=== PATIENT | male | born 1995 | race Caucasian/White ===

== ENCOUNTER 2017-01-26 06:10 | Observation (INO) | payer OTHER ==
[~2017-01-26] VITALS: Ht 165.1 cm; Wt 86.8 kg
[2017-01-26] MEDS ORDERED: SODIUM CHLORIDE 0.9% 1000ML 1,000 ML IV STA ×2 (06:43→06:44)
[2017-01-26] MEDS ORDERED: DIPHTHERIA/TETANUS/PERTUSSIS 0.5 ML SYR/VIAL IM. ONE ×2 (06:45→10:30)
[2017-01-26] MEDS ORDERED: XYLOCAINE 1%/SOD BICARB 20 ML VIAL INFIL STA (06:54)
--- NOTE | 2017-01-26 07:08 | EMERGENCY ROOM VISIT NOTE ---
ED Visit Note Patient was seen and evaluated by Dr. Patterson. I was asked to perform wound repair. Risks and benefits of performing primary wound closure versus no repair were discussed with the patient who verbalizes understanding. Verbal consent was obtained prior to performing the procedure. Pt was evaluated before the procedure and was found to be neurovascularly intact. Post procedure he was fully intact neurovascularly intact. He strength is +5/5 in the upper extremities. RIGHT ARM: 17 cc of 1% buffered lidocaine was used to anesthetize the 10cm laceration. The wound was cleansed and prepped in the typical sterile fashion utilizing normal saline and Betadine. The wound was sterilely draped. Once proper anesthetization was established, the wound was further examined and demonstrated a linear laceration to include superficial muscle. The wound was copiously irrigated with normal saline and Betadine. The wound was closed using 13 simple, 4-0 vicryl sutures and 22 5-0 nylon simple interrupted sutures with the wound edges being well approximated. Patient tolerated the procedure well. No complications were met. The wound was cleansed and dressed with a Bacitracin dressing. LEFT ARM: 20 cc of 1% buffered lidocaine was used to anesthetize the 14cm laceration. The wound was cleansed and prepped in the typical sterile fashion utilizing normal saline and Betadine. The wound was sterilely draped. Once proper anesthetization was established, the wound was further examined and demonstrated involvement to muscle facia. The wound was copiously irrigated with normal saline and Betadine. The wound was closed using 17 simple, 5-0 vicryl sutures and 31 simple nylon sutures with the wound edges being well approximated. Patient tolerated the procedure well. No complications were met. The wound was cleansed and dressed with a Bacitracin dressing. Patient received their Adacel vaccination. Total Laceration Length: 24 cm Total Non dissolvable sutures: 53
[2017-01-26 07:17] LABS: BASO % 0.3 %; BASO ABS # 0.03 K/uL (0-0.2); COMPLETE YES; EOS % 0.5 %; HEMATOCRIT 41.7 % (42-52); IG% 0.8 %; LYMPH % 22.2 %; MEAN CELL VOLUME 84.4 fL (80-100); MEAN CORPUSCULAR HGB CONC 35.5 g/dl (32-36); MEAN PLATELET VOLUME 8.8 fL (7.4-10.4); MONO % 7.6 %; NEUT % 68.6 %; PLATELET COUNT 354 K/uL (130-400); RED BLOOD COUNT 4.94 M/uL (4.7-6.1); WHITE BLOOD COUNT 9.89 K/uL (4.8-10.8)
[2017-01-26 07:37] LABS: ALT/SGPT 61 U/L (12-78); AST/SGOT 24 U/L (15-37); BLOOD UREA NITROGEN 10 mg/dl (7-18); BUN/CREATININE RATIO 10.2 (10-20); CARBON DIOXIDE 22 mmol/L (21-32); CHLORIDE 107 mmol/L (98-107); GLUCOSE 102 mg/dl (70-99); POTASSIUM 3.5 mmol/L (3.5-5.1); SODIUM 142 mmol/L (136-145)
--- NOTE | 2017-01-26 07:44 | DIAGNOSTIC IMAGING REPORT ---
RIGHT FOREARM 2 VIEWS ROUTINE CLINICAL HISTORY: Laceration. Evaluate for foreign body. COMPARISON: None FINDINGS: A bandage overlies the distal right forearm. A 3 mm radiodensity projects over the medial soft tissues of the right hand at the level the metacarpals. No additional possible foreign bodies are identified. There is no acute fracture of the right radius or ulna. IMPRESSION: 3 mm radiodensity within the medial soft tissues of the right hand, as described above. This could reflect a small foreign body or artifact. Electronically signed by: Mohit Rogers M.D. 01/26/2017 7:42 AM Dictated Date/Time: 01/26/2017 7:40 AM
[2017-01-26 07:48] LABS: ALKALINE PHOSPHATASE 84 U/L (45-117)
--- NOTE | 2017-01-26 07:49 | DIAGNOSTIC IMAGING REPORT ---
LEFT FOREARM 2 VIEWS ROUTINE CLINICAL HISTORY: Laceration. Evaluate for foreign body. COMPARISON: None FINDINGS: A bandage overlies the mid to distal left forearm. No radiopaque foreign bodies are identified. There is no acute fracture of the left radius or ulna. IMPRESSION: 1. No radiopaque foreign body identified. 2. No acute fracture of the left radius or ulna. Electronically signed by: Mohit Rogers M.D. 01/26/2017 7:47 AM Dictated Date/Time: 01/26/2017 7:46 AM
[2017-01-26 07:53] LABS: ACETAMINOPHEN 2 ug/ml (10-30)
[2017-01-26 07:55] LABS: URINE APPEARANCE CLEAR (CLEAR); URINE BILIRUBIN NEG (NEG); URINE COLOR YELLOW; URINE NITRITE NEG (NEG); URINE PH 6.5 (4.5-7.5); URINE SPECIFIC GRAVITY 1.009 (1.000-1.030); UROBILINOGEN NEG (NEG)
[2017-01-26 07:56] LABS: MANUAL MICROSCOPIC REQUIRED? NO; REVIEW REQ? NO
--- NOTE | 2017-01-26 07:58 | EMERGENCY ROOM VISIT NOTE ---
History Report prepared by [place]: [place] Under the Supervision of: Dr. Emir Patterson D.O. First contact with patient: 06:30 Chief Complaint: LACERATION/CUT (SUT/DERMABOND) Stated Complaint: WRIST LACERATIONS Nursing Triage Summary: Patient arrives to the ED via ALS transport after being brought in from his apartment with self inflicted lacerations to bilateral forearms. Patient reports that he has been having SI for a while and decided to take a large amount of benadryl and cut his forearms with a razor in an attempt to commit suicide. Patient states that he has not attempted suicide in the past and does not have a hx of depression or anxiety that he takes medication for, however he has been depressed per patient report lately. Patient has two large lacerations to his bilateral forearms. Right forearm has approx. 4in laceration which is wide open , 6in laceration to left forearm with tendon visible. History of Present Illness The patient is a 21 year old male who presents to the Emergency Room via ALS with complaints of persistent bilateral wrist pain that started 1.5 hours prior to arrival. The patient admits to trying to commit suicide by cutting his wrist. He also admits to taking a full handful of Benadryl. He believes it was more than 20 pills, but is unsure because he did not count them. He does not know how many milligrams the pills were each. The patient also admits to taking one dose of NyQuil. The patient also states he drank alcohol in addition to taking the pills. The patient denies any history of being diagnosed with any psychiatric conditions. He is unsure of when his last tetanus shot was, but thinks it was probably within the last 10 years. Pt denies any numbness or tingling in his arms, headache, change in vision, fevers, chest pain, shortness of breath, nausea, vomiting, diarrhea, pain with urination, and melena. 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 A total of 10 systems reviewed and were otherwise negative. Past Medical & Surgical Medical Problems: (1) Antihistamines overdose (2) Depression (3) No pertinent past psychiatric history Family History No pertinent family history Social History Smoking Status: Never Smoker Housing Status: lives with roommate Occupation Status: student Current/Historical Medications No Active Prescriptions or Reported Meds Allergies Coded Allergies: No Known Allergies (Unverified , 01/26/17) Physical Exam Vital Signs Date Time Temp Pulse Resp B/P Pulse Ox O2 Delivery O2 Flow Rate FiO2 01/26/17 07:48 115 18 97 Room Air 01/26/17 07:10 96 Room Air 01/26/17 06:23 37.1 121 16 144/90 93 Room Air 01/26/17 06:17 119 Physical Exam GENERAL: sitting up in bed, disheveled, non-toxic EYE EXAM: normal conjunctiva, PERRL and EOM's intact OROPHARYNX: no exudate, no erythema, lips, buccal mucosa, and tongue normal and mucous membranes are moist NECK: supple, no nuchal rigidity, no adenopathy, non-tender LUNGS: Clear to auscultation. Normal chest wall mechanics HEART: tachycardic, no murmurs, S1 normal and S2 normal ABDOMEN: abdomen soft, non-tender, normo-active bowel sounds, no masses, no rebound or guarding. BACK: Back is symmetrical on inspection and there is no deformity, no midline tenderness, no CVA tenderness. SKIN: no rashes and no bruising UPPER EXTREMITIES: left upper extremity with 15 cm linear laceration up the palmar aspect of left forearm spread about 4 cm with exposed muscle and tendon, flexion and extension of shoulder elbow and wrist are intact, radial pulse is 2/ 4, gross sensation intact of radial/median and ulnar nerves, abduction and adduction of digits along with grasp intact. Right upper extremity with 10 cm linear laceration up the ulnar aspect of right forearm spread about 3.5 cm with exposed muscle belly, flexion and extension of shoulder elbow and wrist are intact, radial pulse is 2/4, gross sensation intact, abduction and adduction of digits along with grasp intact LOWER EXTREMITIES: No pitting edema. NEURO EXAM: Normal sensorium, cranial nerves II-XII grossly intact, normal speech, no gross weakness of arms, no gross weakness of legs. Gross sensation intact. PSYCH: Flattened affect and admits to suicidal ideations with a suicide attempt Medical Decision & Procedures ER Provider Diagnostic Interpretation: Radiology results as stated below per my review and the radiologist's interpretation: RIGHT FOREARM 2 VIEWS ROUTINE CLINICAL HISTORY: Laceration. Evaluate for foreign body. COMPARISON: None FINDINGS: A bandage overlies the distal right forearm. A 3 mm radiodensity projects over the medial soft tissues of the right hand at the level the metacarpals. No additional possible foreign bodies are identified. There is no acute fracture of the right radius or ulna. IMPRESSION: 3 mm radiodensity within the medial soft tissues of the right hand, as described above. This could reflect a small foreign body or artifact. Electronically signed by: Mohit Rogers M.D. 01/26/2017 7:42 AM Dictated Date/Time: 01/26/2017 7:40 AM LEFT FOREARM 2 VIEWS ROUTINE CLINICAL HISTORY: Laceration. Evaluate for foreign body. COMPARISON: None FINDINGS: A bandage overlies the mid to distal left forearm. No radiopaque foreign bodies are identified. There is no acute fracture of the left radius or ulna. IMPRESSION: 1. No radiopaque foreign body identified. 2. No acute fracture of the left radius or ulna. Electronically signed by: Mohit Rogers M.D. 01/26/2017 7:47 AM Dictated Date/Time: 01/26/2017 7:46 AM Laboratory Results 01/26/17 07:05 Red Blood Count 4.94, Mean Corpuscular Volume 84.4, Mean Corpuscular Hemoglobin 30.0, Mean Corpuscular Hemoglobin Concent 35.5, Mean Platelet Volume 8.8, Neutrophils (%) (Auto) 68.6, Lymphocytes (%) (Auto) 22.2, Monocytes (%) (Auto) 7.6, Eosinophils (%) (Auto) 0.5, Basophils (%) (Auto) 0.3, Neutrophils # (Auto) 6.78, Lymphocytes # (Auto) 2.20, Monocytes # (Auto) 0.75, Eosinophils # (Auto) 0.05, Basophils # (Auto) 0.03 01/26/17 07:05 Test 01/26/17 07:03 01/26/17 07:05 01/26/17 07:35 Bedside Glucose 111 mg/dl (70-99) White Blood Count 9.89 K/uL (4.8-10.8) Red Blood Count 4.94 M/uL (4.7-6.1) Hemoglobin 14.8 g/dL (14.0-18.0) Hematocrit 41.7 % (42-52) Mean Corpuscular Volume 84.4 fL (80-100) Mean Corpuscular Hemoglobin 30.0 pg (25-34) Mean Corpuscular Hemoglobin Concent 35.5 g/dl (32-36) Platelet Count 354 K/uL (130-400) Mean Platelet Volume 8.8 fL (7.4-10.4) Neutrophils (%) (Auto) 68.6 % Lymphocytes (%) (Auto) 22.2 % Monocytes (%) (Auto) 7.6 % Eosinophils (%) (Auto) 0.5 % Basophils (%) (Auto) 0.3 % Neutrophils # (Auto) 6.78 K/uL (1.4-6.5) Lymphocytes # (Auto) 2.20 K/uL (1.2-3.4) Monocytes # (Auto) 0.75 K/uL (0.11-0.59) Eosinophils # (Auto) 0.05 K/uL (0-0.5) Basophils # (Auto) 0.03 K/uL (0-0.2) RDW Standard Deviation 37.1 fL (36.4-46.3) RDW Coefficient of Variation 12.1 % (11.5-14.5) Immature Granulocyte % (Auto) 0.8 % Immature Granulocyte # (Auto) 0.08 K/uL (0.00-0.02) Prothrombin Time 11.0 SECONDS (9.0-12.0) Prothromb Time International Ratio 1.0 (0.9-1.1) Activated Partial Thromboplast Time 25.4 SECONDS (21.0-31.0) Partial Thromboplastin Ratio 1.0 Anion Gap 13.0 mmol/L (3-11) Est Creatinine Clear Calc Drug Dose 116.4 ml/min Estimated GFR () 122.4 Estimated GFR (Non- 105.6 BUN/Creatinine Ratio 10.2 (10-20) Calcium Level 8.0 mg/dl (8.5-10.1) Total Bilirubin 0.2 mg/dl (0.2-1) Direct Bilirubin < 0.1 mg/dl (0-0.2) Aspartate Amino Transf (AST/SGOT) 24 U/L (15-37) Alanine Aminotransferase (ALT/SGPT) 61 U/L (12-78) Alkaline Phosphatase 84 U/L (45-117) Total Creatine Kinase 57 U/L (39-308) Total Protein 7.4 gm/dl (6.4-8.2) Albumin 3.8 gm/dl (3.4-5.0) Lipase 87 U/L (73-393) Thyroid Stimulating Hormone (TSH) 1.120 uIu/ml (0.300-4.500) Ethyl Alcohol mg/dL 40.0 mg/dl (0-3) Urine Color YELLOW Urine Appearance CLEAR (CLEAR) Urine pH 6.5 (4.5-7.5) Urine Specific [place] 1.009 (1.000-1.030) Urine Protein NEG (NEG) Urine Glucose (UA) NEG (NEG) Urine Ketones NEG (NEG) Urine Occult Blood NEG (NEG) Urine Nitrite NEG (NEG) Urine Bilirubin NEG (NEG) Urine Urobilinogen NEG (NEG) Urine Leukocyte Esterase NEG (NEG) Urine Opiates Screen NEG (NEG) Urine Methadone, Qualitative NEG (NEG) Urine Barbiturates NEG (NEG) Urine Phencyclidine (PCP) Level NEG (NEG) Ur Amphetamine/Methamphetamine NEG (NEG) MDMA (Ecstasy) Screen NEG (NEG) Urine Benzodiazepines Screen NEG (NEG) Urine Cocaine Metabolite NEG (NEG) Urine Marijuana (THC) NEG (NEG) Laboratory results per my review. Medications Administered Medications (Trade) Dose Ordered Sig/Rasheeda Route Start Time Stop Time Status Last Admin Dose Admin Sodium Chloride 1,000 ml @ 999 mls/hr Q1H1M STAT IV 01/26/17 06:43 01/26/17 07:43 DC 01/26/17 07:30 999 MLS/HR Sodium Chloride (Nss 1000ml) 1,000 ml @ 999 mls/hr Q1H1M STAT IV 01/26/17 06:44 01/26/17 07:44 DC 01/26/17 06:44 999 MLS/HR Lidocaine HCl 20 ml 20 ml ONE STAT INFIL 01/26/17 06:54 01/26/17 06:56 DC 01/26/17 07:30 40 ML Sodium Chloride (Nss 1000ml) 1,000 ml @ 125 mls/hr Q8H IV 01/26/17 09:10 02/25/17 09:09 01/26/17 12:29 125 MLS/HR ECG Indication: toxicologic Rate (beats per minute): 116 Rhythm: sinus tachycardia Findings: other (normal axis and normal intervals) ED Course ED COURSE: Vital signs were reviewed and showed tachycardic. The patients medical record was reviewed The above diagnostic studies were performed and reviewed. ED treatments and interventions as stated above. 0632: The patient was evaluated in room B4. A complete history and physical examination was performed. 0643: Ordered NSS 1000 ml @ 999 mls/hr IV, NSS 1000 ml @ 999 mls/hr IV. 0645: Ordered Adacel Inj 0.5 ml IM. 0706: At this time, I discussed the patient's case with Poison Control. They said to repeat a Tylenol level and monitor the patient for the next 8 hours until his symptoms resolve. 0731: At this time, Michael Ambrosio PA-C - Emergency Medicine performed a laceration repair on the patient's forearms. See his note for further details. 0818: Upon reevaluation, the patient is doing well.He has no new complaints at this time. 0831: At this time, I discussed the patient's case with Dr. Holcomb - Hospitalist [facility] and he agreed to accept the patient for further evaluation. Based on the patients age, coexisting illnesses, exam and lab findings the decision to treat as an inpatient was made. The patient remained stable while under my care. The patient will be evaluated for further management. Medical Decision Differential diagnosis: Etiologies such as toxicologic, infection, hypoglycemia, electrolyte abnormalities, cardiac sources, intracerebral event, neurologic, as well as others were entertained. Patient is a 21-year-old male who presents the ER for suicide attempt. He cut both his forearms in a linear distribution. There is no active arterial bleeding on my initial inspection. He was tachycardic on exam consistent with his Benadryl overdose. He does admit to a small dose of NyQuil and alcohol. All this occurred at 5 AM this morning. Patient admits to a history of depression, no previous admissions or formal diagnosis. EKG shows a sinus tachycardia with normal intervals. Discussed with [facility] poison control and they recommend observation period for at least 8 hours. Patient has no other complaint at this time. Labs show no significant leukocytosis or anemia. BMP along with LFTs, bilirubin, CK, TSH and lipase are normal. INR is unremarkable. Salicylates and Tylenol are low both 2 or less. Repeat salicylate and Tylenol at 4 hours were negative. Alcohol was 40. Patient was given a bolus of fluids. He remained persistently tachycardic on the ER and was admitted for observation secondary to intentional overdose of Benadryl and Tylenol. Lacerations repaired by my PA. Please see his note for further details. Consults Time Called: 824 Consulting Physician: Dr. Holcomb - Hospitalist [facility] [place] Returned Call: [phone] At this time, I discussed the patient's case with Dr. Holcomb and he agreed to accept the patient for further evaluation. Impression Primary Impression: Suicide attempt Additional Impressions: Anticholinergic drug overdose Laceration Scribe Attestation The scribe's documentation has been prepared under my direction and personally reviewed by me in its entirety. I confirm that the note above accurately reflects all work, treatment, procedures, and medical decision making performed by me. Departure Information Dispostion Being Evaluated By Hospitalist Prescriptions No Active Prescriptions or Reported Meds Problem Qualifiers Additional Impressions: Anticholinergic drug overdose Encounter type: initial encounter Injury intent: intentional self-harm Qualified Codes: T44.3X2A - Poisoning by other parasympatholytics [ anticholinergics and antimuscarinics] and spasmolytics, intentional self-harm, initial encounter
[2017-01-26 08:18] LABS: BENZODIAZEPINE, URINE NEG (NEG); COCAINE,URINE NEG (NEG); PHENCYCLIDINE, URINE NEG (NEG)
[2017-01-26] MEDS ORDERED: POLYETHYLENE (MIRALAX) 17 GM PACK PO PRN (09:15)
[2017-01-26] MEDS ORDERED: ACETAMINOPHEN 325 MG TAB PO PRN (09:15)
[2017-01-26] MEDS ORDERED: ALUMINUM/MAGNESIUM/SIMETH (MAALOX MAX) 30 ML UDC PO PRN (09:15)
[2017-01-26] MEDS ORDERED: ONDANSETRON INJ 2 MG/ML 2 ML VIAL IV PRN (09:15)
[2017-01-26] MEDS ORDERED: MAGNESIUM HYDROXIDE SUSP 30 ML UDC PO PRN (09:15)
[2017-01-26] MEDS ORDERED: IV FLUIDS COMPLETED PRN (09:45)
[2017-01-26 10:25] VITALS: O2SAT 97; Ht 165.1 cm; Wt 86.8 kg
[2017-01-26 11:00] LABS: ACETAMINOPHEN 2 ug/ml (10-30)
--- NOTE | 2017-01-26 11:28 | History and Physical ---
History & Physical Date & Time of Service: Jan 26, 2017 at 09:22 Chief Complaint: Wrist Lacerations Primary Care Physician: No Doctor, Assigned History of Present Illness Source: patient, hospital records This is a 21 y/o male with a history of undiagnosed depression who presented to the ED on 01/26 following a suicide attempt. 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 The patient states he has a history of depression that has never been officially diagnosed. He denies taking any medications for this and has never seen a psychiatrist. He states that last semester he did see a counselor for a few weeks, but that did not seem to help. He has had thoughts of suicide the last week or so. He never attempted suicide prior to today. He denies any new stressors or precipitating events prior to his suicidal ideations. He states that his father and sister have been diagnosed with bipolar disorder, and he believes that his mother is taking antidepressants as well. 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 The patient himself had called EMS after the event as it was " taking too long" and the pain had become severe. The patient currently denies any pain in his arms following suturing. He does report some lightheadedness. The patient denies fevers, chills, sweats, chest pain, palpitations, claudication, cough, wheezing, shortness of breath, nausea, vomiting, abdominal pain, dysuria, hematuria, urinary retention, paralysis, weakness, numbness and tingling. Past Medical/Surgical History Medical Problems: (1) No pertinent past psychiatric history Status: Chronic Family History Bipolar disorder Colon cancer Depression Heart disease Social History Smoking Status: Never Smoker Smokeless Tobacco Use: No Alcohol Use: socially Drug Use: marijuana (occasionally) Marital Status: single Housing status: lives with roommate Occupational Status: [employer] student Allergies Coded Allergies: No Known Allergies (Unverified , 01/26/17) Home Medications No Active Prescriptions or Reported Meds Review of Systems Constitutional: + problem reported (lightheaded), No chills, No fever, No sweats Eyes: No diplopia, No eye pain, No worsening of vision ENT: No hearing loss, No sore throat, No trouble swallowing Respiratory: No cough, No shortness of breath, No wheezing Cardiovascular: No chest pain, No claudication, No palpitations Abdomen: No nausea, No pain, No vomiting Musculoskeletal: + muscle pain (pain in wrists/forearms bilaterally), No joint pain, No swelling Genitourinary - Male: No dysuria, No hematuria, No urinary retention Neurologic: No numbness/tingling, No paralysis, No weakness Psychiatric: + depression symptoms (depressed feelings "for a while", never diagnosed), + problem reported (suicidal ideation x 1 week. suicide attempt), + substance abuse (Benadryl overdose), No anxiety Endocrine: + problem reported (bleeding in forearms controlled bilaterally) Integumentary: No color change, No itch, No rash Physical Exam Vital Signs Date Time Temp Pulse Resp B/P Pulse Ox O2 Delivery O2 Flow Rate FiO2 01/26/17 07:48 115 18 97 Room Air 01/26/17 07:10 96 Room Air 01/26/17 06:23 37.1 121 16 144/90 93 Room Air 01/26/17 06:17 119 General Appearance: WD/WN, no apparent distress, + obese Head: normocephalic, atraumatic Eyes: normal inspection, PERRL, EOMI ENT: normal ENT inspection, hearing grossly normal, pharynx normal Neck: supple, no JVD, trachea midline Respiratory/Chest: lungs clear, normal breath sounds, no respiratory distress Cardiovascular: no gallop, no murmur, + tachycardia (regular rhythm) Abdomen/GI: normal bowel sounds, non tender, soft Extremities/Musculoskelatal: no calf tenderness, normal capillary refill, no pedal edema, normal range of motion, + pertinent finding (17 cm linear laceration on anterior aspect of left forearm closed with sutures. 10 cm linear laceration on anterior aspect of right forearm close with sutures.) Neurologic/Psych: no motor/sensory deficits, alert, oriented x 3, + pertinent finding (flat affect) Skin: normal color, warm/dry, no rash Diagnostics Laboratory Results Results Past 24 Hours Test 01/26/17 07:03 01/26/17 07:05 01/26/17 07:35 01/26/17 09:00 Range/Units Bedside Glucose 111 70-99 mg/dl White Blood Count 9.89 4.8-10.8 K/uL Red Blood Count 4.94 4.7-6.1 M/uL Hemoglobin 14.8 14.0-18.0 g/dL Hematocrit 41.7 42-52 % Mean Corpuscular Volume 84.4 80-100 fL Mean Corpuscular Hemoglobin 30.0 25-34 pg Mean Corpuscular Hemoglobin Concent 35.5 32-36 g/dl Platelet Count 354 130-400 K/uL Mean Platelet Volume 8.8 7.4-10.4 fL Neutrophils (%) (Auto) 68.6 % Lymphocytes (%) (Auto) 22.2 % Monocytes (%) (Auto) 7.6 % Eosinophils (%) (Auto) 0.5 % Basophils (%) (Auto) 0.3 % Neutrophils # (Auto) 6.78 1.4-6.5 K/uL Lymphocytes # (Auto) 2.20 1.2-3.4 K/uL Monocytes # (Auto) 0.75 0.11-0.59 K/uL Eosinophils # (Auto) 0.05 0-0.5 K/uL Basophils # (Auto) 0.03 0-0.2 K/uL RDW Standard Deviation 37.1 36.4-46.3 fL RDW Coefficient of Variation 12.1 11.5-14.5 % Immature Granulocyte % (Auto) 0.8 % Immature Granulocyte # (Auto) 0.08 0.00-0.02 K/uL Prothrombin Time 11.0 9.0-12.0 SECONDS Prothromb Time International Ratio 1.0 0.9-1.1 Activated Partial Thromboplast Time 25.4 21.0-31.0 SECONDS Partial Thromboplastin Ratio 1.0 Sodium Level 142 136-145 mmol/L Potassium Level 3.5 3.5-5.1 mmol/L Chloride Level 107 98-107 mmol/L Carbon Dioxide Level 22 21-32 mmol/L Anion Gap 13.0 3-11 mmol/L Blood Urea Nitrogen 10 7-18 mg/dl Creatinine 1.00 0.60-1.40 mg/dl Est Creatinine Clear Calc Drug Dose 116.4 ml/min Estimated GFR () 122.4 Estimated GFR (Non- 105.6 BUN/Creatinine Ratio 10.2 10-20 Random Glucose 102 70-99 mg/dl Calcium Level 8.0 8.5-10.1 mg/dl Total Bilirubin 0.2 0.2-1 mg/dl Direct Bilirubin < 0.1 0-0.2 mg/dl Aspartate Amino Transf (AST/SGOT) 24 15-37 U/L Alanine Aminotransferase (ALT/SGPT) 61 12-78 U/L Alkaline Phosphatase 84 45-117 U/L Total Creatine Kinase 57 39-308 U/L Total Protein 7.4 6.4-8.2 gm/dl Albumin 3.8 3.4-5.0 gm/dl Lipase 87 73-393 U/L Thyroid Stimulating Hormone (TSH) 1.120 0.300-4.500 uIu/ml Salicylates Level < 1.7 2.8-20 mg/dl Acetaminophen Level 2 10-30 ug/ml Ethyl Alcohol mg/dL 40.0 0-3 mg/dl Urine Color YELLOW Urine Appearance CLEAR CLEAR Urine pH 6.5 4.5-7.5 Urine Specific [place] 1.009 1.000-1.030 Urine Protein NEG NEG Urine Glucose (UA) NEG NEG Urine Ketones NEG NEG Urine Occult Blood NEG NEG Urine Nitrite NEG NEG Urine Bilirubin NEG NEG Urine Urobilinogen NEG NEG Urine Leukocyte Esterase NEG NEG Urine Opiates Screen NEG NEG Urine Methadone, Qualitative NEG NEG Urine Barbiturates NEG NEG Urine Phencyclidine (PCP) Level NEG NEG Ur Amphetamine/Methamphetamine NEG NEG MDMA (Ecstasy) Screen NEG NEG Urine Benzodiazepines Screen NEG NEG Urine Cocaine Metabolite NEG NEG Urine Marijuana (THC) NEG NEG Diagnostic Radiology Reviewed the following studies and agree with interpretation as follows: Patient Name: SHYAM BUSTILLO Unit Number: [id number] Dictated: 01/26/17739 Transcribed: 01/26/17739 Printed Date/Time: [~ rep prt dt]/[~ rep prt tm] [~ rep ct labl] - [~ rep ct ivnm] [facility] [place] [address] Dictated: 01/26/17739 Transcribed: 01/26/17739 Printed Date/Time: [~ rep prt dt]/[~ rep prt tm] [~ rep ct labl] - [~ rep ct ivnm] Patient: SHYAM BUSTILLO Address1: UNKNOWN Med Rec: [id number] Address2: Acct ID: [id number] [facility] Zip: [place] [address] Date: 1995 Sex: M Room/Bed: Ref Phy: SC: [facility] Att Phy: Report #: [id number] Laverne Phy: Test: FA Admit Phy: Firer Helper: FRANKY Interpreting Phy: Mohit Rogers MD Diagnosis: WRIST LACERATIONS Ordering Phy: Emir Patterson DO Service Date: 01/26/17 Admit Date: 01/26/17 MNE: PWRSCRIBE CONF: DICTATED BY: Mohit Rogers MD]] CC: Emir Patterson, Endcc: [~ rep ct add3]] RIGHT FOREARM 2 VIEWS ROUTINE CLINICAL HISTORY: Laceration. Evaluate for foreign body. COMPARISON: None FINDINGS: A bandage overlies the distal right forearm. A 3 mm radiodensity projects over the medial soft tissues of the right hand at the level the metacarpals. No additional possible foreign bodies are identified. There is no acute fracture of the right radius or ulna. IMPRESSION: 3 mm radiodensity within the medial soft tissues of the right hand, as described above. This could reflect a small foreign body or artifact. Electronically signed by: Mohit Rogers M.D. 01/26/2017 7:42 AM Dictated Date/Time: 01/26/2017 7:40 AM The status of this report is Signed. Draft = Not yet reviewed or approved by Radiologist. Signed = Reviewed and approved by Radiologist. <AttendingPhy></AttendingPhy> <FamilyPhy></FamilyPhy> <PrimaryPhy></PrimaryPhy> <UnitNumber>[id number]</UnitNumber> <VisitNumber>[id number]</VisitNumber> < PatientName>SHYAM BUSTILLO</PatientName> <DateOfBirth>1995</DateOfBirth> < Location>[facility]</Location> <ServiceDate>01/26/17</ServiceDate> <MNE>ESINDI</MNE> <OrderingPhy>Emir Patterson DO</OrderingPhy> <OrderingPhyMNE>f rep ord dr mne</ OrderingPhyMNE> <DictatingPhyMNE>f rep dict dr jaramillo</DictatingPhyMNE> <CCListMNE> f rep ct mne</CCListMNE> <AdmittingPhyMNE>f pt admit dr jaramillo</AdmittingPhyMNE> < AttendingPhyMNE>f pt attend dr jaramillo</AttendingPhyMNE> <ConsultingPhyMNE>f pt consult dr jaramillo</ConsultingPhyMNE> <FamilyPhyMNE>f pt fam dr jaramillo</FamilyPhyMNE> <OtherPhyMNE>f pt other dr jaramillo</OtherPhyMNE> < PrimaryPhyMNE>f pt prim care dr jaramillo</PrimaryPhyMNE> <ReferringPhyMNE>f pt referring dr jaramillo</ReferringPhyMNE> Patient Name: SHYAM BUSTILLO Unit Number: [id number] Dictated: 01/26/17745 Transcribed: 01/26/17745 JOSE CRUZ Printed Date/Time: [~ rep prt dt]/[~ rep prt tm] [~ rep ct labl] - [~ rep ct ivnm] [facility] [place] [address] Dictated: 01/26/17745 Transcribed: 01/26/17745 JOSE CRUZ Printed Date/Time: [~ rep prt dt]/[~ rep prt tm] [~ rep ct labl] - [~ rep ct ivnm] Patient: SHYAM BUSTILLO Address1: UNKNOWN Med Rec: [id number] Address2: Acct ID: [id number] [facility] Zip: [place] [address] Date: 1995 Sex: M Room/Bed: Ref Phy: SC: IVETTE Att Phy: Report #: [id number] Laverne Phy: Test: FA Admit Phy: Firer Helper: FRANKY Interpreting Phy: Mohit Rogers MD Diagnosis: WRIST LACERATIONS Ordering Phy: Emir Patterson DO Service Date: 01/26/17 Admit Date: 01/26/17 MNE: PWRSCRIBE CONF: DICTATED BY: Mohit Rogers MD]] CC: Emir Patterson DO Endcc: [~ rep ct add3]] LEFT FOREARM 2 VIEWS ROUTINE CLINICAL HISTORY: Laceration. Evaluate for foreign body. COMPARISON: None FINDINGS: A bandage overlies the mid to distal left forearm. No radiopaque foreign bodies are identified. There is no acute fracture of the left radius or ulna. IMPRESSION: 1. No radiopaque foreign body identified. 2. No acute fracture of the left radius or ulna. Electronically signed by: Mohit Rogers M.D. 01/26/2017 7:47 AM Dictated Date/Time: 01/26/2017 7:46 AM The status of this report is Signed. Draft = Not yet reviewed or approved by Radiologist. Signed = Reviewed and approved by Radiologist. <AttendingPhy></AttendingPhy> <FamilyPhy></FamilyPhy> <PrimaryPhy></PrimaryPhy> <UnitNumber>[id number]</UnitNumber> <VisitNumber>[id number]</VisitNumber> < PatientName>ARTIEHERIBERTOSHYAM</PatientName> <DateOfBirth>1995</DateOfBirth> < Location>[facility]</Location> <ServiceDate>01/26/17</ServiceDate> <MNE>ESINDI</MNE> <OrderingPhy>Emir Patterson DO</OrderingPhy> <OrderingPhyMNE>f rep ord dr jaramillo</ OrderingPhyMNE> <DictatingPhyMNE>f rep dict dr jaramillo</DictatingPhyMNE> <CCListMNE> f rep ct clint</CCListMNE> <AdmittingPhyMNE>f pt admit dr jaramillo</AdmittingPhyMNE> < AttendingPhyMNE>f pt attend dr jaramillo</AttendingPhyMNE> <ConsultingPhyMNE>f pt consult dr jaramillo</ConsultingPhyMNE> <FamilyPhyMNE>f pt fam dr jaramillo</FamilyPhyMNE> <OtherPhyMNE>f pt other dr jaramillo</OtherPhyMNE> < PrimaryPhyMNE>f pt prim care dr jaramillo</PrimaryPhyMNE> <ReferringPhyMNE>f pt referring dr jaramillo</ReferringPhyMNE> EKG Reviewed EKG and agree with interpretation as follows: 116 bpm, sinus tachycardia Impression Assessment and Plan 21 y/o male with a history of undiagnosed depression who presented to the ED on 01/26 following a suicide attempt. 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 Reports SI in the last week without any precipitating events or new stressors. Family history bipolar disorder and depression. Patient tachycardic on arrival with heart rate in the 110s-120s. Patient afebrile, other vital signs stable. EKG shows sinus tachycardia. X-rays of bilateral forearms shows no foreign bodies or fractures. Patient received tetanus shot in the ED. Suicide attempt/depression/Benadryl overdose--patient not sure how many Benadryl pills he took, thinks at least 20. Unknown what dosage the pills were. Hemodynamically stable -Admit to telemetry for observation -Psychiatry consultation, appreciate recs -1 on 1 observation -Repeat salicylate and acetaminophen levels now per Poison Control -IVF hydration with NSS at 125 cc/hr -Tylenol 650 mg PO q4h prn pain DVT prophylaxis -Enoxaparin 40 mg SC q24h -DARREN santos and SCDs Code Status -Level I, FULL RESUSCITATION STATUS This chart was completed in part utilizing [employer] Speech Voice Recognition software. Attempts were made to minimize the grammatical errors, random word insertions, pronoun errors and incomplete sentences. Any formal questions or concerns about the content, text or information contained within the body of this dictation should be directly addressed to the provider for clarification. Level of Care Telemetry VTE Prophylaxis VTE Risk Assessment Done? Y/N: Yes Risk Level: Low Given or contraindicated: Enoxaparin (Lovenox)SQ, T.E.D. Stockings, SCD's
[2017-01-26] MEDS: SODIUM CHLORIDE 0.9% 1000ML 1,000 ML IV SCH ×2 (12:29→22:25)
--- NOTE | 2017-01-26 12:38 | Psychiatric Consultation ---
Consultation Date of Consultation Jan 26, 2017. 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 Chief Complaint "I was feeling particularly bad, and decided on Thursday I was going through with it". History of Present Illness The patient presented to the emergency room early this morning via EMS after he called 911, stating he had overdosed and cut his wrists in a suicide attempt at around 5 AM this morning. In the EMS staff completed a 302 petition stating that the patient admitted to slitting his wrists and taking an overdose because he "wanted to ." He received 53 sutures to his bilateral forearms in the emergency room. He admitted to drinking bourbon, taking a handful of Benadryl, and taking one dose of NyQuil. He was tachycardic and hypertensive in the emergency room, and has been admitted to telemetry. On my assessment, he states that he has been depressed for at least 5 years, and has been thinking about suicide "for a long time," but has felt worse over the past week, and on Thursday decided that he would "go through with it." He initially denies any triggers, but later states that his father in a motor vehicle accident in August and that he has not been dealing with it well. He made a plan to send a message via social media to one person, who he thought would "tell everyone else." He states he did not want to "tell anyone to close, they might try to stop me." Last night, he stayed up all night watching movies, stating that he wanted to end his life, but was "nervous about it, so I procrastinated it." Around 4:30 AM, he drank a full cup of bourbon, then took a dose of NyQuil and a handful of Benadryl, as he thought these things would help him to fall asleep and he would not wake up. He then cut both wrists with a box sealing machine catcher. He then "sat there, thinking I'd pass out pretty soon, but 40 minutes later I didn't even feel lightheaded. I figured I'd messed it up, so called 911." He endorses depressed mood with frequent crying spells, feelings of guilt, irritability, poor motivation, decreased energy and concentration, anhedonia, is regulated sleep, and decreased attention to ADLs. He states he's been going about 3 days without a shower, missing classes, and not always keeping up with his schoolwork. He endorses anger, stating he is "always been angry," but typically holds it in. He denies symptoms of charley, psychosis, PTSD , panic, and generalized anxiety, but does report anxiety in social situations, with sweaty palms and occasional shakiness. He saw a counselor at [facility] [employer] [facility] [facility] last semester for approximately 6 sessions, but states it "wasn't too helpful." He says he was trying to find a local psychiatrist, but could not locate anyone who accepted his insurance. Although he has some friends, he has not been open with anybody about how he has been feeling. He is willing for a psychiatric admission once medically stabilized. Past Psychiatric History Current OP Treatment: no current treatment Prior OP Treatment: therapist (Saw a counselor at [facility] for approximately 6 sessions last semester) Prior Psych Hospitalizations: none Access to a Gun: No Suicide Attempts: No Past Medication Trials None Past Medical/Surgical History Endorses episodes of anger where he will punch inanimate objects. Last was 1 month ago. He denies any history of harming himself when doing this, and denies a history of violence towards other people. Allergies Allergies: Coded Allergies: No Known Allergies (Unverified , 01/26/17) Home Medications No Active Prescriptions or Reported Meds Family History Bipolar disorder Colon cancer Depression Heart disease History of Suicide: No History of Substance Abuse: Yes (sister abuses drugs.) Psychiatric History: Yes (father and sister diagnosed with bipolar disorder.) Alcohol Use Alcohol Use In Past 12 Months: Yes (drinks one to 2 times a week, hard liquor, unsure of amount, maximum around 10 shots. Does not think his drinking is a problem, but admits to blacking out. Denies a history of withdrawal, legal problems, physical fights, or relationship problems due to alcohol.) Smoking Use Smoking Status: Never Smoker Substance History Smokes marijuana once a month or less. Denies other recreational drug use. Personal History Lives in: off campus housing in [facility] [employer] with 2 roommates. 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 Will graduate in September 2017.) Relationship History: never Children: none Psychological Trauma History: Other (denies a history of abuse. Lost father unexpectedly in August 2016.) Additional Comments: From [place]. Raised by both parents, who are still together when father in a motor vehicle accident in August 2016. Has 1 younger sister, whom he thinks is living with somebody in their home town. Mother is living with her mother in [place]. Review of Systems 10 systems reviewed. Positive for grogginess and difficulty focusing on questions. Others negative except as stated above. Examination Vital Signs Vital Signs Past 12 Hours Date Time Temp Pulse Resp B/P Pulse Ox O2 Delivery O2 Flow Rate FiO2 01/26/17 11:04 118 18 156/112 96 01/26/17 10:25 97 Room Air 01/26/17 10:12 116 20 173/96 01/26/17 09:46 118 01/26/17 07:48 115 18 97 Room Air 01/26/17 07:10 96 Room Air 01/26/17 06:23 37.1 121 16 144/90 93 Room Air 01/26/17 06:17 119 Laboratory Results Last 24 Hours Test 01/26/17 07:03 01/26/17 07:05 01/26/17 07:35 01/26/17 10:25 Bedside Glucose 111 mg/dl White Blood Count 9.89 K/uL Red Blood Count 4.94 M/uL Hemoglobin 14.8 g/dL Hematocrit 41.7 % Mean Corpuscular Volume 84.4 fL Mean Corpuscular Hemoglobin 30.0 pg Mean Corpuscular Hemoglobin Concent 35.5 g/dl Platelet Count 354 K/uL Mean Platelet Volume 8.8 fL Neutrophils (%) (Auto) 68.6 % Lymphocytes (%) (Auto) 22.2 % Monocytes (%) (Auto) 7.6 % Eosinophils (%) (Auto) 0.5 % Basophils (%) (Auto) 0.3 % Neutrophils # (Auto) 6.78 K/uL Lymphocytes # (Auto) 2.20 K/uL Monocytes # (Auto) 0.75 K/uL Eosinophils # (Auto) 0.05 K/uL Basophils # (Auto) 0.03 K/uL RDW Standard Deviation 37.1 fL RDW Coefficient of Variation 12.1 % Immature Granulocyte % (Auto) 0.8 % Immature Granulocyte # (Auto) 0.08 K/uL Prothrombin Time 11.0 SECONDS Prothromb Time International Ratio 1.0 Activated Partial Thromboplast Time 25.4 SECONDS Partial Thromboplastin Ratio 1.0 Sodium Level 142 mmol/L Potassium Level 3.5 mmol/L Chloride Level 107 mmol/L Carbon Dioxide Level 22 mmol/L Anion Gap 13.0 mmol/L Blood Urea Nitrogen 10 mg/dl Creatinine 1.00 mg/dl Est Creatinine Clear Calc Drug Dose 116.4 ml/min Estimated GFR () 122.4 Estimated GFR (Non- 105.6 BUN/Creatinine Ratio 10.2 Random Glucose 102 mg/dl Calcium Level 8.0 mg/dl Total Bilirubin 0.2 mg/dl Direct Bilirubin < 0.1 mg/dl Aspartate Amino Transf (AST/SGOT) 24 U/L Alanine Aminotransferase (ALT/SGPT) 61 U/L Alkaline Phosphatase 84 U/L Total Creatine Kinase 57 U/L Total Protein 7.4 gm/dl Albumin 3.8 gm/dl Lipase 87 U/L Thyroid Stimulating Hormone (TSH) 1.120 uIu/ml Salicylates Level < 1.7 mg/dl < 1.7 mg/dl Acetaminophen Level 2 ug/ml 2 ug/ml Ethyl Alcohol mg/dL 40.0 mg/dl Urine Color YELLOW Urine Appearance CLEAR Urine pH 6.5 Urine Specific [place] 1.009 Urine Protein NEG Urine Glucose (UA) NEG Urine Ketones NEG Urine Occult Blood NEG Urine Nitrite NEG Urine Bilirubin NEG Urine Urobilinogen NEG Urine Leukocyte Esterase NEG Urine Opiates Screen NEG Urine Methadone, Qualitative NEG Urine Barbiturates NEG Urine Phencyclidine (PCP) Level NEG Ur Amphetamine/Methamphetamine NEG MDMA (Ecstasy) Screen NEG Urine Benzodiazepines Screen NEG Urine Cocaine Metabolite NEG Urine Marijuana (THC) NEG Mental Examination During interview pt is: alert and oriented, cooperative Appearance: appropriately dressed (in a hospital gown), disheveled, other ( overweight, long hair and gonzáles are unkempt, bilateral forearms bandaged) Eye contact is: fair Motor behavior is: no abnormal motor movements Speech: other (slowed, delayed at times) Affect: depressed, constricted Mood is: other ("pretty low") Thought process: goal directed, concrete Thought content: reality based without delusions Suicidal thought are: present (admits to slitting both wrists and overdosing on multiple substances in a suicide attempt earlier this morning) Homicidal thoughts are: denied Hallucinations: denies auditory, denies visual Cognition: other (attention and memory impaired, as evidenced by asking to have the question repeated multiple times throughout the interview) Intelligence estimated to be: average Insight: impaired Judgement: impaired Impression / Recommendations Impression 21-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 He is admitted medically for tachycardia and monitoring due to his overdose, and will require psychiatric admission once medically stabilized. Recommendations (1) Suicide attempt Monitoring on telemetry. Currently tachycardic and hypertensive. Cognition currently impaired by overdose, with impaired attention. Monitor for delirium. Will need at least a 24-hour period of observation before he is appropriate for psychiatric admission. Patient indicates he is willing to sign in voluntarily for psychiatric admission once medically stable, but there is a 302 petition on his chart and he is committable should he change his mind. (2) Depression Patient with a long history of untreated depression. He may benefit from antidepressant medication and therapy. This will need to be addressed further on a behavioral health unit once he is medically stabilized.
[2017-01-26 15:08] VITALS: BP 129/77; PULSE 105; TEMP 36.3; O2SAT 96
[2017-01-26 19:04] VITALS: BP 160/93; PULSE 114; TEMP 36.5; O2SAT 96
[2017-01-26 20:00] VITALS: O2SAT 96
[2017-01-26] MEDS ORDERED: ENOXAPARIN 40 MG/0.4 ML SYR SC SCH (21:00)
[2017-01-26 23:38] VITALS: BP 131/75; PULSE 90; TEMP 36.6; O2SAT 98
[2017-01-27] MEDS: SODIUM CHLORIDE 0.9% 1000ML 1,000 ML IV SCH ×3 (01:10→08:25)
[2017-01-27 03:40] VITALS: BP 123/66; PULSE 82; TEMP 36.7; O2SAT 97
[2017-01-27 06:01] LABS: HEMATOCRIT 40.2 % (42-52); MEAN CORPUSCULAR HEMOGLOBIN 30.9 pg (25-34); MEAN CORPUSCULAR HGB CONC 35.1 g/dl (32-36); MEAN PLATELET VOLUME 8.8 fL (7.4-10.4); PLATELET COUNT 302 K/uL (130-400); RED BLOOD COUNT 4.57 M/uL (4.7-6.1); WHITE BLOOD COUNT 9.25 K/uL (4.8-10.8)
[2017-01-27 06:38] LABS: BUN/CREATININE RATIO 9.2 (10-20); CALCIUM 8.2 mg/dl (8.5-10.1); CREATININE 0.96 mg/dl (0.60-1.40); POTASSIUM 3.9 mmol/L (3.5-5.1)
[2017-01-27 07:53] VITALS: BP 154/96; PULSE 102; TEMP 36.4; O2SAT 95
--- NOTE | 2017-01-27 09:42 | Progress Note ---
Progress Note Date of Service: Jan 27, 2017. Subjective: This is a 21 yo male with intentional suicide attempt with Benedryl and Nyquil followed by laceration vertically to both wrists requiring 53 sutures. Patient with tachycardia and hypertension on admission. Currently no chest pain or tightness. No abd pain or bloating. Tolerating full diet. No fever or chills. Pain controlled to wrists. No acute complaints. Review of Systems Problem List Medical Problems: (1) Anticholinergic drug overdose Status: Acute (2) Laceration Status: Acute (3) Suicide attempt Status: Acute General Appearance: WD/WN, no apparent distress Constitutional: acknowledges: no symptoms reported EENTM: acknowledges: no symptoms reported Respiratory: positive: no symptoms reported Cardiovascular: reports no symptoms reported, denies chest pain, denies edema, denies palpitations Gastrointestinal/Abdominal: negative: diarrhea, nausea, vomiting Genitourinary: negative hematuria, negative pain Musculoskeletal: positive: no symptoms reported Skin: positive: no symptoms reported, negative: lesions Neurological/Psych: positive: depressed (but feels better today) Hematologic/Lymphatic: negative: easy bleeding, easy bruising Immunocompromise: negative: food allergy All Other Systems: Reviewed and Negative Vital Signs Past 8 Hours: Last 8 Hrs Date Time Temp Pulse Resp B/P Pulse Ox O2 Delivery O2 Flow Rate FiO2 01/27/17 08:00 Room Air 01/27/17 07:53 36.4 102 20 154/96 95 Room Air 01/27/17 04:00 Room Air 01/27/17 03:40 36.7 82 16 123/66 97 Room Air Physical Exam Comments Vital Signs - as noted below Laboratory Data - as noted below Physical Exam: General - NAD. Pleasant. Good sense of humor this morning Eyes - No icterus, gaze conjugate ENT - Mucosa moist, no lesions or candidiasis Neck - Supple, No JVD Lungs - No bronchospasm, rales, or rhonchi. Heart - Regular, rate controlled Abdomen - Soft, NT, ND, BS present Extremities - No edema, pedal pulses intact. Dressing dry and intact to bilateral wrists. Neuro - A&OX3 Medications Medications: Medications (Trade) Dose Ordered Sig/Rasheeda Route Start Time Stop Time Status Last Admin Dose Admin Enoxaparin Sodium (Lovenox Inj) 40 mg Q24H SC 01/26/17 21:00 02/25/17 20:59 01/26/17 20:49 40 MG Diphtheria/ Pertussis/Tetanus Vacc (Adacel Inj) 0.5 ml ONCE ONCE IM. 01/26/17 10:30 01/26/17 10:31 DC 01/26/17 10:36 0.5 ML Laboratory Data Laboratory Data: 01/27/17 05:16 01/27/17 05:16 Test 01/26/17 10:25 01/27/17 05:16 Salicylates Level < 1.7 mg/dl (2.8-20) Acetaminophen Level 2 ug/ml (10-30) Red Blood Count 4.57 M/uL (4.7-6.1) Mean Corpuscular Volume 88.0 fL (80-100) Mean Corpuscular Hemoglobin 30.9 pg (25-34) Mean Corpuscular Hemoglobin Concent 35.1 g/dl (32-36) RDW Standard Deviation 40.9 fL (36.4-46.3) RDW Coefficient of Variation 12.8 % (11.5-14.5) Mean Platelet Volume 8.8 fL (7.4-10.4) Anion Gap 8.0 mmol/L (3-11) Est Creatinine Clear Calc Drug Dose 121.2 ml/min Estimated GFR () 128.6 Estimated GFR (Non- 111.0 BUN/Creatinine Ratio 9.2 (10-20) Calcium Level 8.2 mg/dl (8.5-10.1) Assessment and Plan INTENTIONAL OVERDOSE Benadryl and Nyquil. Followed by Jorge. Followed by bilateral wrist lacerations requiring 53 sutures to repair Psychiatry consulted Patient agrees to voluntary inpatient psychiatric admission Appreciate Dr. Tobin's input Inpatient bed expected to be available later today on [address] [facility] WRIST LACERATION Bandages changed this morning No evidence of infection Tylenol for pain Sutures placed 01/26/17 - will need removed in 10 days HYPERTENSION No prior history Not requiring any antihypertensives SBP now 127 TACHYCARDIA Now in the 90s No chest pain or tachycardia No history of heart disease NSR on telemetry No arrhythmias on telemetry NSR in 80s and 90s No sinus tach since yesterday at 21:40 with max of 150 DVT PROPHYLAXIS Enoxaparin Disposition: Tachycardia and hypertension resolved. Expect transition to inpatient psychiatry Discussed with Dr. Saxena. Please refer to his addendum for further recommendations
[2017-01-27 12:10] VITALS: BP 136/84; PULSE 90; TEMP 36.7; O2SAT 97
[2017-01-27] MEDS ORDERED: NURSING VERBAL MED ORDER ONE (13:30)
--- NOTE | 2017-01-27 14:33 | Discharge Instructions ---
Discharge Instructions Date of Service Jan 27, 2017. Admission Reason for Admission: Antihistamines Overdose, Suicide Attempt Discharge Discharge Diagnosis / Problem: INTENTIONAL OVERDOSE Discharge Goals Goal(s): Decrease discomfort, Improve function, Increase independence, Improve disease control, Improve nutritional status, Learn about illness, Diagnostic testing, Therapeutic intervention, Prevent Disease Progression, Specific goals Activity Recommendations Activity Limitations: resume your previous activity . Instructions / Follow-Up Instructions / Follow-Up you have INTENTIONAL OVERDOSE you have WRIST LACERATION [facility] - you need to follow up with your primary care physician in 1 week after discharge from hospital - take medication as instructed, never overdose or any misuse, or take with alcohol, because misuse of medicine may cause organ damage or , call your primary care physician if have questions of medicaitons. - call your primary care physician OR go to local emergency room if has any fever/chill, chest pain, shortness of breathing, nausea/vomiting/abdominal pain , facial droop/slurry speech/local weakness, or if has any questions. - fall precaution - diet as instructed - you need to follow up with your subspecialist - you should understand that it is important to follow up the above instruction , and "not following the above instruction" may cause delayed or missed care of your medical conditions which may cause permanent organ damage and even . Current Hospital Diet Patient's current hospital diet: Regular Diet Discharge Diet Recommended Diet: Regular Diet Pending Studies Studies pending at discharge: no Medical Emergencies . Who to Call and When: Medical Emergencies: If at any time you feel your situation is an emergency, please call 911 immediately. . Non-Emergent Contact Non-Emergency issues call your: Primary Care Provider, Specialist (psych) . . "Provider Documentation" section prepared by Danis Saxena. VTE Core Measure Inpt VTE Proph given/why not?: Enoxaparin (Lovenox)JAMES, TTeressa Macias, SCD's
[2017-01-27 14:48] VITALS: BP 136/84; PULSE 90; TEMP 36.7; O2SAT 97
[2017-01-27 15:02] VITALS: BP 145/89; PULSE 93; TEMP 36.8; O2SAT 96
--- NOTE | 2017-01-27 19:32 | Discharge Summary ---
Discharge Summary Date of Service Jan 27, 2017. Discharge Summary Admission Date: Jan 26, 2017 at 09:22 Discharge Date: Jan 27, 2017 Discharge Disposition: Acute care mental health Principal Diagnosis: Intentional overdose with suicidal ideation secondary to major depression Secondary Diagnoses/Problems: Lethargy Tachycardia Hypertension Procedures: Suturing of bilateral wrist lacerations EKG Forearm x-ray Vaccinations: TdAp (Adacel) 0.5 mL 01/26/17 at 10:36am Consultations: Psychiatry: Dr. Tobin Pending Studies/Follow-Up: Patient will need sutures evaluated / removed on 02/05/17 Medication Reconciliation Medication Profile: No Active Prescriptions or Reported Meds Admission Information HPI (per Admitting provider): This is a 21 y/o male with a history of undiagnosed depression who presented to the ED on 01/26 following a suicide attempt. Around 5 AM this morning, the patient states that he took a handful of Benadryl, some NyQuil and drank bourbon before taking a boxer operator blade and cutting both forearms in an attempt to commit suicide. The patient states he has a history of depression that has never been officially diagnosed. He denies taking any medications for this and has never seen a psychiatrist. He states that last semester he did see a counselor for a few weeks, but that did not seem to help. He has had thoughts of suicide the last week or so. He never attempted suicide prior to today. He denies any new stressors or precipitating events prior to his suicidal ideations. He states that his father and sister have been diagnosed with bipolar disorder, and he believes that his mother is taking antidepressants as well. 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 The patient himself had called EMS after the event as it was " taking too long" and the pain had become severe. The patient currently denies any pain in his arms following suturing. He does report some lightheadedness. The patient denies fevers, chills, sweats, chest pain, palpitations, claudication, cough, wheezing, shortness of breath, nausea, vomiting, abdominal pain, dysuria, hematuria, urinary retention, paralysis, weakness, numbness and tingling. Physical Exam (per Admitting): General Appearance: WD/WN, no apparent distress, + obese Head: normocephalic, atraumatic Eyes: normal inspection, PERRL, EOMI ENT: normal ENT inspection, hearing grossly normal, pharynx normal Neck: supple, no JVD, trachea midline Respiratory/Chest: lungs clear, normal breath sounds, no respiratory distress Cardiovascular: no gallop, no murmur, + tachycardia (regular rhythm) Abdomen/GI: normal bowel sounds, non tender, soft Extremities/Musculoskelatal: no calf tenderness, normal capillary refill, no pedal edema, normal range of motion, + pertinent finding (17 cm linear laceration on anterior aspect of left forearm closed with sutures. 10 cm linear laceration on anterior aspect of right forearm close with sutures.) Neurologic/Psych: no motor/sensory deficits, alert, oriented x 3, + pertinent finding (flat affect) Skin: normal color, warm/dry, no rash Hospital Course Patient was admitted to telemetry for tachycardia and hypertension. In the course of his hospitalization he had no arrhythmias but did have tachycardia with normal sinus rhythm up to 150 beats per minute. He did experience some lethargy secondary to the Benadryl and NyQuil. He had no periods of hypoxia. Chemistries were unremarkable. The patient did receive IV fluids. He did not receive any antihypertensives. Tachycardia and hypertension were self-limited and resolved overnight. Patient's pain was well-controlled to his wrists with acetaminophen. No fever or chills. His mother was present at bedside to receive discussion from psychiatry. Patient was seen by Dr. Saxena who discharged patient to inpatient psychiatry on at [facility]. Total time spent on discharge = 40 minutes This includes examination of the patient, discharge planning, medication reconciliation, and communication with other providers. Discharge Instructions Please refer to discharge instructions under separate cover by Dr. Saxena Also please refer to progress note by this author on this date
== END 2017-01-27 15:25 ==
LOC: ENRESERVDT → ENRESERVTM → EDBD 06:10 → C.EDB 06:14 → C.2E 09:22
PROVIDERS: ADMIT Hospitalist; ATTEND Hospitalist
DX: S61.511A Laceration without foreign body of right wrist, initial encounter (principal); S61.512A Laceration without foreign body of left wrist, initial encounter; X78.8XXA Intentional self-harm by other sharp object, initial encounter; Y92.009 Unspecified place in unspecified non-institutional (private) residence as the place of occurrence of the external cause; T37.4X Poisoning by, adverse effect of and underdosing of anthelminthics; F10.220 Alcohol dependence with intoxication, uncomplicated; F32.9 Major depressive disorder, single episode, unspecified; Z81.8 Family history of other mental and behavioral disorders; Z23 Encounter for immunization; X58.XXXA Exposure to other specified factors, initial encounter

== ENCOUNTER 2017-01-27 15:26 | Inpatient (IN) | payer OTHER ==
[~2017-01-27] VITALS: Ht 165.1 cm; Wt 84.7 kg
[2017-01-27 16:18] VITALS: BP 131/94; PULSE 99; TEMP 36.6; Ht 165.1 cm; Wt 84.7 kg
[2017-01-27] MEDS ORDERED: NURSING VERBAL MED ORDER ONE (17:30)
[2017-01-27] MEDS ORDERED: BISMUTH SUBSALICYLATE PER ML OMNICELL CHARGE PO PRN (17:45)
[2017-01-27] MEDS ORDERED: hydrOXYzine HCL 25 MG TAB PO PRN (17:45)
[2017-01-27] MEDS ORDERED: ALUMINUM/MAGNESIUM SUSP 30 ML UDC PO PRN (17:45)
[2017-01-27] MEDS ORDERED: IBUPROFEN 800 MG TAB PO PRN (17:45)
[2017-01-27] MEDS ORDERED: SODIUM CHLORIDE 0.65% NA SOLN 45 ML (OCEAN) PRN (17:45)
[2017-01-27] MEDS ORDERED: MAGNESIUM HYDROXIDE SUSP 30 ML UDC PO PRN (17:45)
[2017-01-27] MEDS: ACETAMINOPHEN 325 MG TAB PO PRN (20:34)
[2017-01-28 06:54] VITALS: BP_SYST 122; BP_SYST 129; BP_DIAS 86; BP_DIAS 95; PULSE 106; PULSE 92; TEMP 36.7
--- NOTE | 2017-01-28 10:18 | Psychiatric History & Physical ---
History Date of Service Jan 28, 2017. 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 Chief Complaint "About the same". History of Present Illness The patient presented to the emergency room on 01/26/17 via EMS after he called 911, stating he had overdosed and cut his wrists in a suicide attempt at around 5 AM that morning. In the EMS staff completed a 302 petition stating that the patient admitted to slitting his wrists and taking an overdose because he "wanted to ." He received 53 sutures to his bilateral forearms in the emergency room. He admitted to drinking bourbon, taking a handful of Benadryl, and taking one dose of NyQuil. He was tachycardic and hypertensive in the emergency room, and was been admitted to telemetry. On my consult assessment 08/04, he stated that he had been depressed for at least 5 years, and had been thinking about suicide "for a long time," but felt worse over the past week, and on Thursday decided that he would "go through with it." He initially denied any triggers, but later stated that his father unexpectedly in a motor vehicle accident in August, and that he has not been dealing with it well. He made a plan to send a message via social media to one person, who he thought would "tell everyone else" after he was . He did not want to "tell anyone too close, they might try to stop me." The night prior to presentation, he stayed up all night watching movies, stating that he wanted to end his life, but was "nervous about it, so I procrastinated it." Around 4:30 AM, he drank about a cup of bourbon, then took a dose of NyQuil and a handful of Benadryl, as he thought these things would help him to fall asleep after he cut his wrists , and he would not wake up. He then cut both wrists with a paperboard box maker. He then "sat there, thinking I'd pass out pretty soon, but 40 minutes later I didn' t even feel lightheaded. I figured I'd messed it up, so called 911." He endorses depressed mood with frequent crying spells, feelings of guilt, irritability, poor motivation, decreased energy and concentration, anhedonia, dysregulated sleep, and decreased attention to ADLs. He states he's been going about 3 days without a shower, missing classes, and not always keeping up with his schoolwork. His grades have gone down. He endorses anger, stating he has "always been angry," but typically holds it in. He denies symptoms of charley, psychosis, PTSD, panic, and generalized anxiety, but does report anxiety in social situations, with sweaty palms and occasional shakiness. He saw a counselor at [facility] last semester for approximately 6 sessions, but states it "wasn't too helpful." He says he was trying to find a local psychiatrist, but could not locate anyone who accepted his insurance. Although he has some friends, he has not been open with anybody about how he has been feeling. Today, the patient states he is "not much different," mood remains depressed, and he is disappointed that his suicide attempt did not work. He continues to think about suicide and wanting to be , but denies that he would try to hurt himself here in the hospital. There is a part of him that is glad to still be alive, as "being here makes it a little hopeful to get better, it was never taken seriously before, so I just assumed there wasn't a way to get better." He says he had tried to find an outpatient psychiatrist at the beginning of the fall sem, but couldn't find a provider who took his insurance (had , but lost it when his father , so now has no insurance). The grogginess and confusion he had after the OD has resolved. Sleep is impaired, has been waking up early and can't fall back asleep. He has talked to friends and his mother since admission, and says they had not previously known how bad his depression was. His mother visited, but had to return to [place], although she is planning to return at some point (next week?). She is currently living with her mother, since her . He has not really talked about his suicide attempt with anyone yet. He is not sure what he will do at discharge, whether he'll leave school and go stay with his grandmother or remain in school , and notes he doesn't really want to leave school, but also recognizes that he may not be able to make up the work he's missed, as his grades were already suffering, and now he's missing this week's classes. He also worries that he will remain depressed if he stays here, and would feel more supported if he were with his family. Past Psychiatric History Current OP Treatment: no current treatment Prior OP Treatment: therapist (at [facility] last semester) Prior Psych Hospitalizations: none Access to a Gun: No (Denies) Suicide Attempts: No Past Medication Trials None Additional Notes Endorses episodes of anger where he will punch inanimate objects. Last was 1 month ago. He denies any history of harming himself when doing this, and denies a history of violence towards other people. Past Medical/Surgical History (1) No chronic diseases present Allergies Allergies: Coded Allergies: No Known Allergies (Unverified , 01/26/17) Home Medications No Active Prescriptions or Reported Meds Family History Bipolar disorder Colon cancer Depression Heart disease History of Suicide: No History of Substance Abuse: Yes (sister abuses drugs) Psychiatric History: Yes (father and sister with bipolar disorder) Drinks 1-2 times a week, hard liquor, unsure of amount, maximum around 10 shots. Does not think his drinking is a problem, but admits to blacking out. Denies a history of withdrawal, legal problems, physical fights, or relationship problems due to alcohol. Alcohol Use Alcohol Use In Past 12 Months: Yes (01/25/17 evening, 4-5 shots of whiskey, typically drinks 1x/wk of that amount) AUDIT Total Score: 11 The patient's AUDIT score suggests problematic drinking (Zone III WHO). Brief intervention was offered and accepted. Intervention was greater than 5 min in length. Brief interventions include: 1. Assess Readiness to Quit, 2. Advise: Help Patient to Reduce or Abstain from Alcohol, 3. Agree: Set Specific, Feasible Goals, 4. Assist: Anticipate barriers, Problem-Solving Solutions. Social work to 5. Arrange: Referrals to appropriate treatment. Summary of intervention: The patient is in precontemplation stage with regards to transtheoretical model of change. The patient is advised to decrease alcohol consumption due to depressant effects and risk of interactions with prescription medications. The patient agreed to decrease alcohol intake, and will be provided with recovery materials to continue to education self on how to cope with their condition without drinking. Smoking Use Smoking Status: Never Smoker Substance History Smokes marijuana once a month or less. Denies other recreational drug use. Personal History Lives in: off campus housing in [facility] [place] with 2 roommates. 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 Will graduate in September 2017) Relationship History: never Children: none Psychological Trauma History: Other (Denies abuse history. Father in MVA 2015.) Additional Comments: From [place]. Raised by both parents, who are still together when father in a motor vehicle accident in August 2016. Has 1 younger sister, whom he thinks is living with somebody in their home town. Mother is living with her mother in [place]. Review of Systems 10 systems reviewed, negative except as stated above. Lacerations are mildly uncomfortable, with mild itchiness, but denies exudate or bleeding. Examination Physical Examination The physical exams performed on the medical floor were reviewed and accepted for the purposes of this admission. Vital Signs Vital Signs Past 12 Hours Date Time Temp Pulse Resp B/P Pulse Ox O2 Delivery O2 Flow Rate FiO2 01/28/17 06:54 36.7 92 16 122/86 106 129/95 Mental Examination During interview pt is: alert and oriented, cooperative Appearance: appropriately dressed, disheveled, other (overweight, poor hygiene) Motor behavior is: steady gait & station, no abnormal motor movements Speech: other (minimal, monotone) Affect: depressed, constricted Mood is: depressed Thought process: goal directed Thought content: reality based without delusions Suicidal thought are: present Homicidal thoughts are: denied Hallucinations: denies auditory, denies visual Cognition: memory grossly intact (other than events after OD when under the influence), attention grossly intact, language grossly intact Intelligence estimated to be: consistent with level of education Insight: fair Judgement: fair Impression / Recommendations Impression 21-year-old single white 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 This was a very serious suicide attempt with high lethality. He remains suicidal and severely depressed. He has never had psychiatric treatment in the past, and is willing for a trial of an SSRI. He will need OP f/u, substance abuse needs to be addressed, family meeting with mother, and recommendations are for medical withdrawal, but he is still thinking about this. Inpatient treatment is required due to the high risk for suicide if discharged, and is the least restrictive and most appropriate venue for treatment at this time. Risk Factors Assessment Male: Yes : Yes /single/: Yes Access to guns: No (Denies) Health problems: No Mental Health Diagnoses: Yes Substance use disorders: Yes Previous attempt: No Previous psychiatric stay: No Hopelessness: Yes Smoker: No Protective Factors Assessment : No Responsible for young children: No Employed: No Stable relationships: Yes Supportive family: Yes Good rapport with provider: No Recommendations (1) Suicide attempt 01/28 -Medically stabilized after treatment on the hospitalist service. Hypertension and tachycardia have resolved, and were likely due to his overdose. -He remained suicidal here, but is able to contract for safety on the unit, and agrees to go to staff if he is feeling unsafe. -Encourage group participation, work on healthy coping skills and a discharge safety plan. (2) Depression 01/28 - Discussed diagnosis and treatment options, including SSRI and therapy. Will start sertraline, reviewed risks, benefits and common side effects, and provided Will start 50mg today, and increase to 75mg tomorrow. Will rapidly titrate and aim for 150mg by time of discharge. - Will need referral for outpatient follow-up with a therapist and psychiatrist. He is undecided as to whether he will remain in school or medically withdrawal. Encouraged him to consider withdrawing and returning home for increased supports and due to the severity of his depression and suicide attempt. - Family meeting with mother. - Encourage abstinence from alcohol and marijuana due to risk of worsening depression or interfering with medications. (3) Self-inflicted laceration of wrist Bilateral wrist lacerations, with 53 sutures placed on 01/26/2017. Daily dressing changes, keep wounds clean and dry, apply bacitracin as needed. Ibuprofen as needed for pain or discomfort. Suture removal in 10 days. CPT Code Initial Hospital Care: 45576 Problem Qualifiers (1) Depression: Depression Type: major depressive disorder Major depression recurrence: single episode Active/Remission status: currently active Major depression episode severity: severe Psychotic features: without psychotic features Qualified Codes: F32.2 - Major depressive disorder, single episode, severe without psychotic features
[2017-01-28] MEDS ORDERED: BACITRACIN OINT 15 GM TUBE EXT PRN (10:30)
[2017-01-28] MEDS ORDERED: SERTRALINE HCL 50 MG TAB PO ONE (10:30)
[2017-01-28] MEDS: IBUPROFEN 600 MG TAB PO PRN (11:11)
[2017-01-29 06:46] VITALS: BP_SYST 116; BP_SYST 119; BP_DIAS 76; BP_DIAS 80; PULSE 101; PULSE 84; TEMP 36.8
[2017-01-29] MEDS ORDERED: SERTRALINE HCL 50 MG TAB PO SCH (09:00)
--- NOTE | 2017-01-29 09:46 | Psychiatric Progress Notes ---
Progress Note Date of Service Jan 29, 2017. 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 Chief Complaint "OK I guess.". Subjective Patient was seen & assessed interval progress reviewed with Treatment Team. the patient is still trying to adjust to the unit. He is struggling with living with other people and the lack of privacy. He is having some pain in his lacerations today and is applying ice. He continues to feel depressed, and thinking about his schooling, lack of relationships. He is still having SI but no plan or intent. He says that he is having no side effects to the Zoloft. 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 He remains unsure how he will proceed with school. Nursing reports that he showered last evening, has been attending groups although with little spontaneous participation. He reported that he was "cautiously optimistic". Review of Systems Constitutional: + fatigue ENT: No dental problems, No hearing loss, No nasal symptoms, No problem reported, No sore throat, No tinnitus, No trouble swallowing, No unusual epistaxis Respiratory: No cough, No dyspnea at rest, No dyspnea on exertion, No hemoptysis, No problem reported, No shortness of breath, No sputum, No wheezing Cardiovascular: No PND, No chest pain, No claudication, No edema, No orthopnea , No palpitations, No problem reported Abdomen: No GI bleeding, No constipation, No diarrhea, No nausea, No pain, No problem reported, No vomiting Musculoskeletal: + muscle pain (to bilateral forearm lacerations) Neurologic: No balance problems, No memory loss, No numbness/tingling, No paralysis, No problem reported, No vertigo, No weakness Psychiatric: + depression symptoms (with SI), + insomnia Integumentary: + problem reported (bilateral forearm lacerations with sutures, bandages) Sleep Information Total Hours of Sleep: 7.25 Meal Information Percent of Breakfast Consumed: 100 Percent of Dinner Consumed: 100 Mental Status Exam During interview pt is: alert and oriented, cooperative Appearance: appropriately dressed, disheveled, other (overweight, poor hygiene) Eye contact is: good Motor behavior is: steady gait & station, no abnormal motor movements Speech: normal in rate, rhythm & volume, other Affect: depressed, flat, constricted Mood is: depressed Thought process: goal directed Thought content: reality based without delusions Suicidal thought are: present Homicidal thoughts are: denied Hallucinations: denies auditory, denies visual Cognition: memory grossly intact (other than events after OD when under the influence), attention grossly intact, language grossly intact Intelligence estimated to be: consistent with level of education Insight: fair Judgement: fair Impression Adjusting to the unit, struggling with lack of privacy. Tolerating Zoloft and so will increase to 100 mg. tomorrow. He remains severely depressed with SI. Will need a family meeting. Will encourage to withdraw from school for the semester. Plan (1) Suicide attempt 01/28 -Medically stabilized after treatment on the hospitalist service. Hypertension and tachycardia have resolved, and were likely due to his overdose. -He remained suicidal here, but is able to contract for safety on the unit, and agrees to go to staff if he is feeling unsafe. -Encourage group participation, work on healthy coping skills and a discharge safety plan. (2) Depression 01/28 - Discussed diagnosis and treatment options, including SSRI and therapy. Will start sertraline, reviewed risks, benefits and common side effects, and provided Will start 50mg today, and increase to 75mg tomorrow. Will rapidly titrate and aim for 150mg by time of discharge. - Will need referral for outpatient follow-up with a therapist and psychiatrist. He is undecided as to whether he will remain in school or medically withdrawal. Encouraged him to consider withdrawing and returning home for increased supports and due to the severity of his depression and suicide attempt. - Family meeting with mother. - Encourage abstinence from alcohol and marijuana due to risk of worsening depression or interfering with medications. 01/29 - Increase Zoloft to 100 mg. starting tomorrow - Family meeting - Patient has not been doing well this semester due to depression and will now be missing more classes. Encourage patient to withdraw for the semester (3) Self-inflicted laceration of wrist Bilateral wrist lacerations, with 53 sutures placed on 01/26/2017. Daily dressing changes, keep wounds clean and dry, apply bacitracin as needed. Ibuprofen as needed for pain or discomfort. Suture removal in 10 days. Visit Code E&M Code: 87100 Risk Factors Assessment Male: Yes : Yes /single/: Yes Health problems: No Mental Health Diagnoses: Yes Substance use disorders: Yes Previous attempt: No Previous psychiatric stay: No Hopelessness: Yes Smoker: No Protective Factors Assessment : No Responsible for young children: No Employed: No Stable relationships: Yes Supportive family: Yes Good rapport with provider: No Data Vital Signs Last 24 Hrs: Date Time Temp Pulse Resp B/P Pulse Ox O2 Delivery O2 Flow Rate FiO2 01/29/17 06:46 36.8 84 16 116/76 101 119/80 Meds Administered Last 24 Hrs: Meds Administered (Past 24Hrs) Medications (Trade) Dose Ordered Sig/Rasheeda Route Start Time Stop Time Status Last Admin Dose Admin Acetaminophen (Tylenol Tab) 650 mg Q4H PRN PO 01/27/17 17:45 02/26/17 17:44 01/27/17 20:34 650 MG Sertraline HCl (Zoloft Tab) 75 mg QAM PO 01/29/17 09:00 02/28/17 08:59 01/29/17 08:53 75 MG Sertraline HCl (Zoloft Tab) 50 mg NOW ONCE PO 01/28/17 10:30 01/28/17 10:58 DC 01/28/17 11:10 50 MG Ibuprofen (Motrin Tab) 600 mg TID PRN PO 01/28/17 10:30 02/27/17 10:29 01/28/17 11:11 600 MG Problem Qualifiers (1) Depression: Depression Type: major depressive disorder Major depression recurrence: single episode Active/Remission status: currently active Major depression episode severity: severe Psychotic features: without psychotic features Qualified Codes: F32.2 - Major depressive disorder, single episode, severe without psychotic features
[2017-01-29] MEDS: hydrOXYzine HCL 25 MG TAB PO PRN ×2 (21:32→22:20)
[2017-01-30 06:30] VITALS: BP_SYST 109; BP_SYST 119; BP_DIAS 71; BP_DIAS 81; PULSE 103; PULSE 82; TEMP 36.8
[2017-01-30] MEDS: SERTRALINE HCL 100 MG TAB PO SCH (09:00)
--- NOTE | 2017-01-30 12:20 | Psychiatric Progress Notes ---
Progress Note Date of Service Jan 30, 2017. 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 Chief Complaint "OK". Subjective Patient was seen & assessed interval progress reviewed with Treatment Team. The patient says that his mood remains depressed but improving. He still has thoughts of suicide during down times. He has been attending groups although noted by staff to be peripheral. He had a meeting with his mother today, and said that it was OK, mother is supportive. His lacerations are healing and itchy. Review of Systems Constitutional: + fatigue ENT: No dental problems, No hearing loss, No nasal symptoms, No problem reported, No sore throat, No tinnitus, No trouble swallowing, No unusual epistaxis Respiratory: No cough, No dyspnea at rest, No dyspnea on exertion, No hemoptysis, No problem reported, No shortness of breath, No sputum, No wheezing Cardiovascular: No PND, No chest pain, No claudication, No edema, No orthopnea , No palpitations, No problem reported Musculoskeletal: + problem reported (bilateral forearm lacerations, sutured, bandaged. ), No calf pain, No joint pain, No muscle pain, No swelling Psychiatric: + depression symptoms Integumentary: + problem reported (bilateral forearm lacerations) Sleep Information Total Hours of Sleep: 6.75 Meal Information Percent of Breakfast Consumed: 100 Percent of Lunch Consumed: 90 Percent of Dinner Consumed: 50 Mental Status Exam During interview pt is: alert and oriented, cooperative Appearance: appropriately dressed, disheveled, other (overweight, poor hygiene) Eye contact is: good Motor behavior is: steady gait & station, no abnormal motor movements Speech: normal in rate, rhythm & volume, other Affect: depressed, flat, constricted Mood is: depressed Thought process: goal directed Thought content: reality based without delusions Suicidal thought are: present Homicidal thoughts are: denied Hallucinations: denies auditory, denies visual Cognition: memory grossly intact (other than events after OD when under the influence), attention grossly intact, language grossly intact Intelligence estimated to be: consistent with level of education Insight: fair Judgement: fair Impression Adjusting to the unit, struggling with lack of privacy. Family meeting with mother today. He will go to [place] to be with her after discharge. tolerating Zoloft. Continue. Plan (1) Suicide attempt 01/28 -Medically stabilized after treatment on the hospitalist service. Hypertension and tachycardia have resolved, and were likely due to his overdose. -He remained suicidal here, but is able to contract for safety on the unit, and agrees to go to staff if he is feeling unsafe. -Encourage group participation, work on healthy coping skills and a discharge safety plan. (2) Depression 01/28 - Discussed diagnosis and treatment options, including SSRI and therapy. Will start sertraline, reviewed risks, benefits and common side effects, and provided Will start 50mg today, and increase to 75mg tomorrow. Will rapidly titrate and aim for 150mg by time of discharge. - Will need referral for outpatient follow-up with a therapist and psychiatrist. He is undecided as to whether he will remain in school or medically withdrawal. Encouraged him to consider withdrawing and returning home for increased supports and due to the severity of his depression and suicide attempt. - Family meeting with mother. - Encourage abstinence from alcohol and marijuana due to risk of worsening depression or interfering with medications. 01/29 - Increase Zoloft to 100 mg. starting tomorrow - Family meeting - Patient has not been doing well this semester due to depression and will now be missing more classes. Encourage patient to withdraw for the semester (3) Self-inflicted laceration of wrist Bilateral wrist lacerations, with 53 sutures placed on 01/26/2017. Daily dressing changes, keep wounds clean and dry, apply bacitracin as needed. Ibuprofen as needed for pain or discomfort. Suture removal in 10 days. Visit Code E&M Code: 18293 Risk Factors Assessment Male: Yes : Yes /single/: Yes Health problems: No Mental Health Diagnoses: Yes Substance use disorders: Yes Previous attempt: No Previous psychiatric stay: No Hopelessness: Yes Smoker: No Protective Factors Assessment : No Responsible for young children: No Employed: No Stable relationships: Yes Supportive family: Yes Good rapport with provider: No Data Vital Signs Last 24 Hrs: Date Time Temp Pulse Resp B/P Pulse Ox O2 Delivery O2 Flow Rate FiO2 01/30/17 06:30 36.8 82 16 109/71 103 119/81 Meds Administered Last 24 Hrs: Meds Administered (Past 24Hrs) Medications (Trade) Dose Ordered Sig/Rasheeda Route Start Time Stop Time Status Last Admin Dose Admin Sertraline HCl (Zoloft Tab) 75 mg QAM PO 01/29/17 09:00 01/29/17 13:05 DC 01/29/17 08:53 75 MG Sertraline HCl (Zoloft Tab) 100 mg QAM PO 01/30/17 09:00 03/01/17 08:59 01/30/17 09:00 100 MG Problem Qualifiers (1) Depression: Depression Type: major depressive disorder Major depression recurrence: single episode Active/Remission status: currently active Major depression episode severity: severe Psychotic features: without psychotic features Qualified Codes: F32.2 - Major depressive disorder, single episode, severe without psychotic features
[2017-01-30] MEDS: hydrOXYzine HCL 25 MG TAB PO PRN (22:05)
[2017-01-31 07:06] VITALS: BP_SYST 117; BP_SYST 119; BP_DIAS 75; BP_DIAS 78; PULSE 76; PULSE 94; TEMP 36.7
[2017-01-31] MEDS: SERTRALINE HCL 100 MG TAB PO SCH (08:36)
--- NOTE | 2017-01-31 11:09 | Psychiatric Progress Notes ---
Progress Note Date of Service Jan 31, 2017. 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 Chief Complaint "I seem to be feeling a little better". Subjective Patient was seen & assessed interval progress reviewed with Treatment Team. Patient remains on voluntary status. Reviewed significant suicide attempt including cutting both wrists with boxing and pressing supervisor and alcohol and polysubstance overdose. Reviewed triggers including of father in August. He reports that his depression preceded father's . He has not previously been treated with antidepressants. He denies any perceived effect or side effect since starting Zoloft. Does perceive would benefit from having sought help and support provided so far. Denies suicidal thoughts yesterday or today. Reports that he had been having rather incessant suicidal impulses for quite some time prior to his actual attempt. He continues to work on his journaling and expresses improving hopefulness about his inability to feel well in the future. Review of Systems Abdomen: No nausea Sleep Information Total Hours of Sleep: 7.00 Meal Information Percent of Breakfast Consumed: 100 Percent of Lunch Consumed: 100 Percent of Dinner Consumed: 100 Mental Status Exam During interview pt is: alert and oriented, cooperative Appearance: appropriately dressed, other Eye contact is: good Motor behavior is: steady gait & station, no abnormal motor movements Speech: normal in rate, rhythm & volume, other Affect: depressed, flat, constricted Mood is: depressed Thought process: goal directed Thought content: reality based without delusions Suicidal thought are: present Homicidal thoughts are: denied Hallucinations: denies auditory, denies visual Cognition: memory grossly intact (other than events after OD when under the influence), attention grossly intact, language grossly intact Intelligence estimated to be: consistent with level of education Insight: fair Judgement: fair Impression Adjusting to the unit, struggling with lack of privacy. Tolerating Zoloft and so will increase to 100 mg. tomorrow. He remains severely depressed with SI. Will need a family meeting. Will encourage to withdraw from school for the semester. Plan (1) Suicide attempt 01/28 -Medically stabilized after treatment on the hospitalist service. Hypertension and tachycardia have resolved, and were likely due to his overdose. -He remained suicidal here, but is able to contract for safety on the unit, and agrees to go to staff if he is feeling unsafe. -Encourage group participation, work on healthy coping skills and a discharge safety plan. 01/31/17 - Tolerating Zoloft titration. Reports resolution of suicidal ideation Thursday into Thursday (2) Depression 01/28 - Discussed diagnosis and treatment options, including SSRI and therapy. Will start sertraline, reviewed risks, benefits and common side effects, and provided Will start 50mg today, and increase to 75mg tomorrow. Will rapidly titrate and aim for 150mg by time of discharge. - Will need referral for outpatient follow-up with a therapist and psychiatrist. He is undecided as to whether he will remain in school or medically withdrawal. Encouraged him to consider withdrawing and returning home for increased supports and due to the severity of his depression and suicide attempt. - Family meeting with mother. - Encourage abstinence from alcohol and marijuana due to risk of worsening depression or interfering with medications. 01/29 - Increase Zoloft to 100 mg. starting tomorrow - Family meeting - Patient has not been doing well this semester due to depression and will now be missing more classes. Encourage patient to withdraw for the semester (3) Self-inflicted laceration of wrist Bilateral wrist lacerations, with 53 sutures placed on 01/26/2017. Daily dressing changes, keep wounds clean and dry, apply bacitracin as needed. Ibuprofen as needed for pain or discomfort. Suture removal in 10 days. Visit Code E&M Code: 40489 Risk Factors Assessment Male: Yes : Yes /single/: Yes Health problems: No Mental Health Diagnoses: Yes Substance use disorders: Yes Previous attempt: No Previous psychiatric stay: No Hopelessness: Yes Smoker: No Protective Factors Assessment : No Responsible for young children: No Employed: No Stable relationships: Yes Supportive family: Yes Good rapport with provider: No Data Vital Signs Last 24 Hrs: Date Time Temp Pulse Resp B/P Pulse Ox O2 Delivery O2 Flow Rate FiO2 01/31/17 07:06 36.7 76 16 117/75 94 119/78 Meds Administered Last 24 Hrs: Meds Administered (Past 24Hrs) Medications (Trade) Dose Ordered Sig/Rasheeda Route Start Time Stop Time Status Last Admin Dose Admin Sertraline HCl (Zoloft Tab) 100 mg QAM PO 01/30/17 09:00 03/01/17 08:59 01/31/17 08:36 100 MG Problem Qualifiers (1) Depression: Depression Type: major depressive disorder Major depression recurrence: single episode Active/Remission status: currently active Major depression episode severity: severe Psychotic features: without psychotic features Qualified Codes: F32.2 - Major depressive disorder, single episode, severe without psychotic features
[2017-01-31] MEDS: IBUPROFEN 600 MG TAB PO PRN (13:24)
[2017-01-31] MEDS: hydrOXYzine HCL 25 MG TAB PO PRN (22:03)
[2017-02-01 06:57] VITALS: BP_SYST 121; BP_SYST 124; BP_DIAS 79; BP_DIAS 87; PULSE 100; PULSE 79; TEMP 36.3
[2017-02-01] MEDS: SERTRALINE HCL 100 MG TAB PO SCH (08:14)
--- NOTE | 2017-02-01 15:17 | Psychiatric Progress Notes ---
Progress Note Date of Service Feb 01, 2017. 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 Chief Complaint "I'm about the same". Subjective Patient was seen & assessed interval progress reviewed with Treatment Team. Patient attending groups but minimally participatory per staff. He was visited by friends last evening which seemed to brighten his affect and he shared some things with them from his journaling. Continues to deny recent suicidal ideation. Denies much change in mood this morning. Denies pain in his upper extremities however his bandages do itch. Review of Systems Constitutional: No fever Sleep Information Total Hours of Sleep: 7.75 Meal Information Percent of Breakfast Consumed: 70 Percent of Lunch Consumed: 100 Percent of Dinner Consumed: 100 Mental Status Exam During interview pt is: alert and oriented, cooperative Appearance: appropriately dressed Eye contact is: good Motor behavior is: steady gait & station, no abnormal motor movements Speech: normal in rate, rhythm & volume, other (soft) Affect: depressed, blunted, constricted Mood is: other (the same) Thought process: goal directed Thought content: reality based without delusions Suicidal thought are: present Homicidal thoughts are: denied Hallucinations: denies auditory, denies visual Cognition: memory grossly intact, attention grossly intact, language grossly intact Intelligence estimated to be: consistent with level of education Insight: fair Judgement: fair Impression Adjusting to the unit, struggling with lack of privacy. Tolerating Zoloft and so will increase to 100 mg. tomorrow. He remains severely depressed with SI. Will need a family meeting. Will encourage to withdraw from school for the semester. Plan (1) Suicide attempt 01/28 -Medically stabilized after treatment on the hospitalist service. Hypertension and tachycardia have resolved, and were likely due to his overdose. -He remained suicidal here, but is able to contract for safety on the unit, and agrees to go to staff if he is feeling unsafe. -Encourage group participation, work on healthy coping skills and a discharge safety plan. 01/31/17 - Tolerating Zoloft titration. Reports resolution of suicidal ideation Thursday into Thursday 02/01 - Continues to deny recurrence of suicidal ideation however affect remains depressed and somewhat on periphery of unit milieu (2) Depression 01/28 - Discussed diagnosis and treatment options, including SSRI and therapy. Will start sertraline, reviewed risks, benefits and common side effects, and provided Will start 50mg today, and increase to 75mg tomorrow. Will rapidly titrate and aim for 150mg by time of discharge. - Will need referral for outpatient follow-up with a therapist and psychiatrist. He is undecided as to whether he will remain in school or medically withdrawal. Encouraged him to consider withdrawing and returning home for increased supports and due to the severity of his depression and suicide attempt. - Family meeting with mother. - Encourage abstinence from alcohol and marijuana due to risk of worsening depression or interfering with medications. 01/29 - Increase Zoloft to 100 mg. starting tomorrow - Family meeting - Patient has not been doing well this semester due to depression and will now be missing more classes. Encourage patient to withdraw for the semester (3) Self-inflicted laceration of wrist Bilateral wrist lacerations, with 53 sutures placed on 01/26/2017. Daily dressing changes, keep wounds clean and dry, apply bacitracin as needed. Ibuprofen as needed for pain or discomfort. Suture removal in 10 days. Visit Code E&M Code: 70970 Risk Factors Assessment Male: Yes : Yes /single/: Yes Health problems: No Mental Health Diagnoses: Yes Substance use disorders: Yes Previous attempt: No Previous psychiatric stay: No Hopelessness: Yes Smoker: No Protective Factors Assessment : No Responsible for young children: No Employed: No Stable relationships: Yes Supportive family: Yes Good rapport with provider: No Data Vital Signs Last 24 Hrs: Date Time Temp Pulse Resp B/P Pulse Ox O2 Delivery O2 Flow Rate FiO2 02/01/17 06:57 36.3 79 16 121/79 100 124/87 Problem Qualifiers (1) Depression: Depression Type: major depressive disorder Major depression recurrence: single episode Active/Remission status: currently active Major depression episode severity: severe Psychotic features: without psychotic features Qualified Codes: F32.2 - Major depressive disorder, single episode, severe without psychotic features
[2017-02-01] MEDS: hydrOXYzine HCL 25 MG TAB PO PRN (22:11)
[2017-02-02 07:05] VITALS: BP_SYST 121; BP_SYST 123; BP_DIAS 77; BP_DIAS 81; PULSE 102; PULSE 91; TEMP 36.8
[2017-02-02] MEDS: SERTRALINE HCL 100 MG TAB PO SCH (08:28)
[2017-02-02] MEDS ORDERED: SERTRALINE HCL 50 MG TAB PO ONE (10:03)
--- NOTE | 2017-02-02 10:03 | Psychiatric Progress Notes ---
Progress Note Date of Service Feb 02, 2017. 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 Chief Complaint "OK I guess.". Subjective Patient was seen & assessed interval progress reviewed with Treatment Team. The patient says that he had a good weekend, and has been journaling for therapy. He has also had visits from friends and reaching out to them. His friend wanted him to ask about ADHD, and after going through the criteria, says that he has 8 of the ADHD criteria. We discussed the need to stabilize his primary depression before considering further evaluations for this. He says that he is spending less time thinking about his problems, and plans to either request a deferral for his courses this semester, but if not, will take a medical withdrawal. he will go to [place] for part of the summer, but then return to [place] to complete his coursework. He denies active SI. Review of Systems Constitutional: No chills, No fatigue, No fever, No problem reported, No sweats , No weakness, No weight loss ENT: No dental problems, No hearing loss, No nasal symptoms, No problem reported, No sore throat, No tinnitus, No trouble swallowing, No unusual epistaxis Respiratory: No cough, No dyspnea at rest, No dyspnea on exertion, No hemoptysis, No problem reported, No shortness of breath, No sputum, No wheezing Cardiovascular: No PND, No chest pain, No claudication, No edema, No orthopnea , No palpitations, No problem reported Abdomen: No GI bleeding, No constipation, No diarrhea, No nausea, No pain, No problem reported, No vomiting Musculoskeletal: No calf pain, No joint pain, No muscle pain, No problem reported, No swelling Neurologic: No balance problems, No memory loss, No numbness/tingling, No paralysis, No problem reported, No vertigo, No weakness Psychiatric: + depression symptoms (improving) Integumentary: + problem reported (Bilateral forearm lacs, sutured and dressed) Sleep Information Total Hours of Sleep: 6.00 Meal Information Percent of Breakfast Consumed: 80 Percent of Lunch Consumed: 100 Percent of Dinner Consumed: 100 Mental Status Exam During interview pt is: alert and oriented, cooperative Appearance: appropriately dressed Eye contact is: good Motor behavior is: steady gait & station, no abnormal motor movements Speech: normal in rate, rhythm & volume, other (soft) Affect: depressed, blunted, constricted Mood is: other (the same) Thought process: goal directed Thought content: reality based without delusions Suicidal thought are: present Homicidal thoughts are: denied Hallucinations: denies auditory, denies visual Cognition: memory grossly intact, attention grossly intact, language grossly intact Intelligence estimated to be: consistent with level of education Insight: fair Judgement: fair Impression Adjusting to the unit, struggling with lack of privacy. Tolerating Zoloft and so will increase to 150 mg. today.He remains affectively restricted, but reaching out more to friends and family. Will need to establish his OP providers. Plan (1) Suicide attempt 01/28 -Medically stabilized after treatment on the hospitalist service. Hypertension and tachycardia have resolved, and were likely due to his overdose. -He remained suicidal here, but is able to contract for safety on the unit, and agrees to go to staff if he is feeling unsafe. -Encourage group participation, work on healthy coping skills and a discharge safety plan. 01/31/17 - Tolerating Zoloft titration. Reports resolution of suicidal ideation Thursday into Thursday 02/01 - Continues to deny recurrence of suicidal ideation however affect remains depressed and somewhat on periphery of unit milieu (2) Depression 01/28 - Discussed diagnosis and treatment options, including SSRI and therapy. Will start sertraline, reviewed risks, benefits and common side effects, and provided Will start 50mg today, and increase to 75mg tomorrow. Will rapidly titrate and aim for 150mg by time of discharge. - Will need referral for outpatient follow-up with a therapist and psychiatrist. He is undecided as to whether he will remain in school or medically withdrawal. Encouraged him to consider withdrawing and returning home for increased supports and due to the severity of his depression and suicide attempt. - Family meeting with mother. - Encourage abstinence from alcohol and marijuana due to risk of worsening depression or interfering with medications. 01/29 - Increase Zoloft to 100 mg. starting tomorrow - Family meeting - Patient has not been doing well this semester due to depression and will now be missing more classes. Encourage patient to withdraw for the semester 02/02 - Increase Zoloft to 150 mg. daily (3) Self-inflicted laceration of wrist Bilateral wrist lacerations, with 53 sutures placed on 01/26/2017. Daily dressing changes, keep wounds clean and dry, apply bacitracin as needed. Ibuprofen as needed for pain or discomfort. Suture removal in 10 days. Visit Code E&M Code: 63346 Risk Factors Assessment Male: Yes : Yes /single/: Yes Health problems: No Mental Health Diagnoses: Yes Substance use disorders: Yes Previous attempt: No Previous psychiatric stay: No Hopelessness: Yes Smoker: No Protective Factors Assessment : No Responsible for young children: No Employed: No Stable relationships: Yes Supportive family: Yes Good rapport with provider: No Data Vital Signs Last 24 Hrs: Date Time Temp Pulse Resp B/P Pulse Ox O2 Delivery O2 Flow Rate FiO2 02/02/17 07:05 36.8 91 16 121/77 102 123/81 Meds Administered Last 24 Hrs: Current Inpatient Medications Medications (Trade) Dose Ordered Sig/Rasheeda Route Start Time Stop Time Status Last Admin Dose Admin Acetaminophen (Tylenol Tab) 650 mg Q4H PRN PO 01/27/17 17:45 02/26/17 17:44 01/27/17 20:34 650 MG Al Hydroxide/Mg Hydroxide (Maalox Susp) 30 ml Q4H PRN PO 01/27/17 17:45 02/26/17 17:44 Bismuth Subsalicylate (Kaopectate Liqd) 15 ml DAILY PRN PO 01/27/17 17:45 02/26/17 17:44 Magnesium Hydroxide (Milk Of Magnesia Susp) 30 ml DAILY PRN PO 01/27/17 17:45 02/26/17 17:44 Sodium Chloride ([place] Nasal [place]) PRN PRN NA 01/27/17 17:45 02/26/17 17:44 Hydroxyzine HCl (Vistaril Tab) 50 mg HSZ PRN PO 01/27/17 17:45 02/26/17 17:44 02/01/17 22:11 50 MG Hydroxyzine HCl (Vistaril Tab) 25 mg Q4H PRN PO 01/27/17 17:45 02/26/17 17:44 Ibuprofen (Motrin Tab) 800 mg TID PRN PO 01/27/17 17:45 02/26/17 17:44 Ibuprofen (Motrin Tab) 600 mg TID PRN PO 01/28/17 10:30 02/27/17 10:29 01/31/17 13:24 600 MG Bacitracin (Bacitracin Oint) 1 appln BID PRN EXT 01/28/17 10:30 02/27/17 10:29 Sertraline HCl (Zoloft Tab) 100 mg QAM PO 01/30/17 09:00 03/01/17 08:59 02/02/17 08:28 100 MG Problem Qualifiers (1) Depression: Depression Type: major depressive disorder Major depression recurrence: single episode Active/Remission status: currently active Major depression episode severity: severe Psychotic features: without psychotic features Qualified Codes: F32.2 - Major depressive disorder, single episode, severe without psychotic features
--- NOTE | 2017-02-02 13:34 | Psych Management Progress Note ---
Psychiatry Miscellaneous Date of Service: Feb 02, 2017. wound on right forearm checked at request of nursing due to bleeding concerns. Patient denies pain. Has been applying ice/pressure after lunch. Minimal serosanguinous drainage, nontender, sutures intact, no purulent discharge. Would clean. Nurse to apply duofilm.
[2017-02-02] MEDS: hydrOXYzine HCL 25 MG TAB PO PRN (22:40)
[2017-02-03 07:00] VITALS: BP_SYST 111; BP_SYST 117; BP_DIAS 72; BP_DIAS 80; PULSE 65; PULSE 83; TEMP 36.8
[2017-02-03] MEDS: SERTRALINE HCL 50 MG TAB PO SCH (08:47)
[2017-02-03] MEDS: ACETAMINOPHEN 325 MG TAB PO PRN (08:48)
--- NOTE | 2017-02-03 11:11 | Psychiatric Progress Notes ---
Progress Note Date of Service Feb 03, 2017. 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 Chief Complaint "I have a headache.". Subjective Patient was seen & assessed interval progress reviewed with Treatment Team. The patient says that he has a meeting with his friend Alberto later today, as Alberto is his closest friend here at school. He is able to talk with Alberto about his problems, and he wants to know how long Alberto will be in school. Isaias denies any further SI and is feeling like he is ready to go home. He plans to either take a deferral or a medical withdrawal from school and return to [place] with his mother quickly after discharge. He will call the Office of Student Affairs today to get some clarification. He has a SMITH today, and some weeping from the lac on his rt wrist. Review of Systems Constitutional: No chills, No fatigue, No fever, No problem reported, No sweats , No weakness, No weight loss ENT: No dental problems, No hearing loss, No nasal symptoms, No problem reported, No sore throat, No tinnitus, No trouble swallowing, No unusual epistaxis Respiratory: No cough, No dyspnea at rest, No dyspnea on exertion, No hemoptysis, No problem reported, No shortness of breath, No sputum, No wheezing Cardiovascular: No PND, No chest pain, No claudication, No edema, No orthopnea , No palpitations, No problem reported Abdomen: No GI bleeding, No constipation, No diarrhea, No nausea, No pain, No problem reported, No vomiting Musculoskeletal: No calf pain, No joint pain, No muscle pain, No problem reported, No swelling Neurologic: No balance problems, No memory loss, No numbness/tingling, No paralysis, No problem reported, No vertigo, No weakness Psychiatric: + depression symptoms (improving) Integumentary: + problem reported (bilateral forearm lacs with sutures and dressing) Sleep Information Total Hours of Sleep: 6.00 Meal Information Percent of Breakfast Consumed: 100 Percent of Lunch Consumed: 100 Percent of Dinner Consumed: 50 Mental Status Exam During interview pt is: alert and oriented, cooperative Appearance: appropriately dressed Eye contact is: good Motor behavior is: steady gait & station, no abnormal motor movements Speech: normal in rate, rhythm & volume, other (soft) Affect: depressed, blunted, constricted Mood is: other (the same) Thought process: goal directed Thought content: reality based without delusions Suicidal thought are: present Homicidal thoughts are: denied Hallucinations: denies auditory, denies visual Cognition: memory grossly intact, attention grossly intact, language grossly intact Intelligence estimated to be: consistent with level of education Insight: fair Judgement: fair Impression Mood improving, and today without SI. Would like to be discharged soon. Will need follow up in [place] since he will be going there for the first part of the summer. Plan (1) Suicide attempt 01/28 -Medically stabilized after treatment on the hospitalist service. Hypertension and tachycardia have resolved, and were likely due to his overdose. -He remained suicidal here, but is able to contract for safety on the unit, and agrees to go to staff if he is feeling unsafe. -Encourage group participation, work on healthy coping skills and a discharge safety plan. 01/31/17 - Tolerating Zoloft titration. Reports resolution of suicidal ideation Thursday into Thursday 02/01 - Continues to deny recurrence of suicidal ideation however affect remains depressed and somewhat on periphery of unit milieu (2) Depression 01/28 - Discussed diagnosis and treatment options, including SSRI and therapy. Will start sertraline, reviewed risks, benefits and common side effects, and provided Will start 50mg today, and increase to 75mg tomorrow. Will rapidly titrate and aim for 150mg by time of discharge. - Will need referral for outpatient follow-up with a therapist and psychiatrist. He is undecided as to whether he will remain in school or medically withdrawal. Encouraged him to consider withdrawing and returning home for increased supports and due to the severity of his depression and suicide attempt. - Family meeting with mother. - Encourage abstinence from alcohol and marijuana due to risk of worsening depression or interfering with medications. 01/29 - Increase Zoloft to 100 mg. starting tomorrow - Family meeting - Patient has not been doing well this semester due to depression and will now be missing more classes. Encourage patient to withdraw for the semester 02/02 - Increase Zoloft to 150 mg. daily 02/03 - Meeting with friend Alberto - Will need follow up in [place] (3) Self-inflicted laceration of wrist Bilateral wrist lacerations, with 53 sutures placed on 01/26/2017. Daily dressing changes, keep wounds clean and dry, apply bacitracin as needed. Ibuprofen as needed for pain or discomfort. Suture removal in 10 days. Discharge / Aftercare Planning Primary Care Physician: Name: [facility] Appointment Notes: As needed Psychiatrist: Name: You will be assigned a Psychiatrist after you therapist appointment Therapist: Name: Jeanie Elena Date of Appointment: Feb 11, 2017 Time of Appointment: 2:30pm Visit Code E&M Code: 09302 Risk Factors Assessment Male: Yes : Yes /single/: Yes Health problems: No Mental Health Diagnoses: Yes Substance use disorders: Yes Previous attempt: No Previous psychiatric stay: No Hopelessness: Yes Smoker: No Protective Factors Assessment : No Responsible for young children: No Employed: No Stable relationships: Yes Supportive family: Yes Good rapport with provider: No Data Vital Signs Last 24 Hrs: Date Time Temp Pulse Resp B/P Pulse Ox O2 Delivery O2 Flow Rate FiO2 02/03/17 07:00 36.8 65 16 111/72 83 117/80 Meds Administered Last 24 Hrs: Meds Administered (Past 24Hrs) Medications (Trade) Dose Ordered Sig/Rasheeda Route Start Time Stop Time Status Last Admin Dose Admin Sertraline HCl (Zoloft Tab) 150 mg QAM PO 02/03/17 09:00 03/05/17 08:59 02/03/17 08:47 150 MG Sertraline HCl (Zoloft Tab) 50 mg 1003 ONCE PO 02/02/17 10:03 02/02/17 10:11 DC 02/02/17 10:41 50 MG Problem Qualifiers (1) Depression: Depression Type: major depressive disorder Major depression recurrence: single episode Active/Remission status: currently active Major depression episode severity: severe Psychotic features: without psychotic features Qualified Codes: F32.2 - Major depressive disorder, single episode, severe without psychotic features
[2017-02-03] MEDS: hydrOXYzine HCL 25 MG TAB PO PRN (21:49)
[2017-02-04 07:09] VITALS: BP_SYST 114; BP_SYST 125; BP_DIAS 80; BP_DIAS 87; PULSE 73; PULSE 93; TEMP 36.8
[2017-02-04] MEDS: SERTRALINE HCL 50 MG TAB PO SCH (08:23)
[2017-02-04] MEDS ORDERED: ZLF/100 PO (09:16)
--- NOTE | 2017-02-04 09:26 | Discharge Instructions ---
Discharge Information Report Includes Report will include the: Discharge Instructions & Summary Admission Admission Date / Time: Jan 27, 2017 at 15:26 Reason for Admission: Major Depression Discharge Discharge Diagnosis / Problem: Major depressive disorder. Condition at Discharge: Good Discharge Goals Goal(s): Decrease discomfort, Improve disease control, Prevent Disease Progression Activity Recommendations Activity Limitations: resume your previous activity Keep sutures clean and dry. Report to the ER for suture removal on 02/05 . Instructions / Follow-Up Instructions / Follow-Up . SPECIAL CARE INSTRUCTIONS: 1. Follow through with your scheduled aftercare appointments. If unable to keep an appointment, please call to reschedule. 2. Take your medication only as prescribed. Medication should not be changed or stopped without the approval of your doctor. In the event of worsening symptoms or concerns about side effects, contact your doctor immediately. 3. Utilize new healthy coping skills, anger management skills, and stress management skills learned during your hospitalization. Journal feelings and process them with a support person. Identify stressors or situations that may result in relapse, deterioration or inappropriate behaviors and develop a plan to deal with those issues. 4. If your coping skills are ineffective and you are in crisis, contact your outpatient providers for direction. If unable to reach your providers, please call the CAN HELP LINE AT or go to the closest Emergency Room. 5. Avoid alcohol and un-prescribed drugs. 6. You have been provided with the Mental Health Advance Directives Pamphlet for your review. AFTERCARE APPOINTMENTS: * Please call your insurance company prior to your scheduled appointment to confirm your aftercare providers are covered. Take your insurance information to your appointments. . Discharge / Aftercare Planning Primary Care Physician: Name: [facility] Appointment Notes: As needed Psychiatrist: Name: You will be assigned a Psychiatrist after you therapist appointment Therapist: Name Of Therapist: [facility] Date of Appointment: Feb 11, 2017 Time of Appointment: 2:30pm . Follow-Up Care Plan for Follow-Up Care: The patient will have providers at [facility] with an intake appt on 02/11 Current Hospital Diet Patient's current hospital diet: Regular Diet Discharge Diet Recommended Diet: Regular Diet Procedures Procedures Performed: Yes List Procedure(s) Performed: Suturing of bilateral forearm lacerations Pending Studies Pending Studies at Discharge: No Medical Emergencies . Who to Call and When: Medical Emergencies: For questions or emergencies related to your hospital stay, please contact the Inpatient Behavioral Health Unit at [phone]. A cardio clinician is on-call 11/05 for the Behavioral Health Unit for emergencies At any time you feel your situation is an emergency, you may also call 911 immediately. . Non-Emergent Contact Non-Emergency issues call your: Psychiatrist, Therapist Advance Directives Existing Advance Directive: No Do You Have an Existing Mental: No Existing Living Will: No Existing Power of Assembler Camper: No Advance Directives Info Given: To Pt/S.O. Advance Directives Reason: Declines as Mental Health Visit. Discharge Summary Admission HPI Per the Admitting provider: The patient presented to the emergency room on 01/26/17 via EMS after he called 911, stating he had overdosed and cut his wrists in a suicide attempt at around 5 AM that morning. In the EMS staff completed a 302 petition stating that the patient admitted to slitting his wrists and taking an overdose because he "wanted to ." He received 53 sutures to his bilateral forearms in the emergency room. He admitted to drinking bourbon, taking a handful of Benadryl, and taking one dose of NyQuil. He was tachycardic and hypertensive in the emergency room, and was been admitted to telemetry. On my consult assessment 08/04, he stated that he had been depressed for at least 5 years, and had been thinking about suicide "for a long time," but felt worse over the past week, and on Thursday decided that he would "go through with it." He initially denied any triggers, but later stated that his father unexpectedly in a motor vehicle accident in August, and that he has not been dealing with it well. He made a plan to send a message via social media to one person, who he thought would "tell everyone else" after he was . He did not want to "tell anyone too close, they might try to stop me." The night prior to presentation, he stayed up all night watching movies, stating that he wanted to end his life, but was "nervous about it, so I procrastinated it." Around 4:30 AM, he drank about a cup of bourbon, then took a dose of NyQuil and a handful of Benadryl, as he thought these things would help him to fall asleep after he cut his wrists , and he would not wake up. He then cut both wrists with a paperboard box maker. He then "sat there, thinking I'd pass out pretty soon, but 40 minutes later I didn' t even feel lightheaded. I figured I'd messed it up, so called 911." He endorses depressed mood with frequent crying spells, feelings of guilt, irritability, poor motivation, decreased energy and concentration, anhedonia, dysregulated sleep, and decreased attention to ADLs. He states he's been going about 3 days without a shower, missing classes, and not always keeping up with his schoolwork. His grades have gone down. He endorses anger, stating he has "always been angry," but typically holds it in. He denies symptoms of charley, psychosis, PTSD, panic, and generalized anxiety, but does report anxiety in social situations, with sweaty palms and occasional shakiness. He saw a counselor at [facility] last semester for approximately 6 sessions, but states it "wasn't too helpful." He says he was trying to find a local psychiatrist, but could not locate anyone who accepted his insurance. Although he has some friends, he has not been open with anybody about how he has been feeling. Today, the patient states he is "not much different," mood remains depressed, and he is disappointed that his suicide attempt did not work. He continues to think about suicide and wanting to be , but denies that he would try to hurt himself here in the hospital. There is a part of him that is glad to still be alive, as "being here makes it a little hopeful to get better, it was never taken seriously before, so I just assumed there wasn't a way to get better." He says he had tried to find an outpatient psychiatrist at the beginning of the fall, but couldn't find a provider who took his insurance (had , but lost it when his father , so now has no insurance). The grogginess and confusion he had after the OD has resolved. Sleep is impaired, has been waking up early and can't fall back asleep. He has talked to friends and his mother since admission, and says they had not previously known how bad his depression was. His mother visited, but had to return to [place], although she is planning to return at some point (next week?). She is currently living with her mother, since her . He has not really talked about his suicide attempt with anyone yet. He is not sure what he will do at discharge, whether he'll leave school and go stay with his grandmother or remain in school , and notes he doesn't really want to leave school, but also recognizes that he may not be able to make up the work he's missed, as his grades were already suffering, and now he's missing this week's classes. He also worries that he will remain depressed if he stays here, and would feel more supported if he were with his family. Hospital Course (1) Suicide attempt 01/28 -Medically stabilized after treatment on the hospitalist service. Hypertension and tachycardia have resolved, and were likely due to his overdose. -He remained suicidal here, but is able to contract for safety on the unit, and agrees to go to staff if he is feeling unsafe. -Encourage group participation, work on healthy coping skills and a discharge safety plan. 01/31/17 - Tolerating Zoloft titration. Reports resolution of suicidal ideation Thursday into Thursday 02/01 - Continues to deny recurrence of suicidal ideation however affect remains depressed and somewhat on periphery of unit milieu (2) Depression 01/28 - Discussed diagnosis and treatment options, including SSRI and therapy. Will start sertraline, reviewed risks, benefits and common side effects, and provided Will start 50mg today, and increase to 75mg tomorrow. Will rapidly titrate and aim for 150mg by time of discharge. - Will need referral for outpatient follow-up with a therapist and psychiatrist. He is undecided as to whether he will remain in school or medically withdrawal. Encouraged him to consider withdrawing and returning home for increased supports and due to the severity of his depression and suicide attempt. - Family meeting with mother. - Encourage abstinence from alcohol and marijuana due to risk of worsening depression or interfering with medications. 01/29 - Increase Zoloft to 100 mg. starting tomorrow - Family meeting - Patient has not been doing well this semester due to depression and will now be missing more classes. Encourage patient to withdraw for the semester 02/02 - Increase Zoloft to 150 mg. daily 02/03 - Meeting with friend Alberto - Will need follow up in [place] (3) Self-inflicted laceration of wrist Bilateral wrist lacerations, with 53 sutures placed on 01/26/2017. Daily dressing changes, keep wounds clean and dry, apply bacitracin as needed. Ibuprofen as needed for pain or discomfort. Suture removal in 10 days. Risk Factors Assessment Male: Yes : Yes /single/: Yes Health problems: No Mental Health Diagnoses: Yes Substance use disorders: Yes Previous attempt: No Previous psychiatric stay: No Hopelessness: Yes Smoker: No Protective Factors Assessment : No Responsible for young children: No Employed: No Stable relationships: Yes Supportive family: Yes Good rapport with provider: No Day of Discharge Assessment COURSE OF HOSPITALIZATION: The patient was on our unit for 8 days and stabilized on Zoloft 150 mg daily. He tolerated this without side effect. The patient had made a very serious suicide attempt after ingesting alcohol and lacerating both forearms, requiring sutures. The wounds were healing he was due for suture removal on February 05. There were no signs of infection. He has many stressors in his life including the fact that his father suddenly in a motor vehicle accident this past fall and subsequent to that, the family breaking up and living in different places. He was also struggling in school. Family meeting was held with his mother during his stay. She was supportive and he will be going to [place] for several weeks during the summer to stay with his mother and grandmother. He decided to take deferred grades for the semester and will return late in the summer to complete his courses. He ceased to have any suicidal thinking over the course of his stay and was more forward focused. He also had a meeting with his very close friend Petr who is very supportive, even offering to have Isaias move in with he and his if needed. The patient identified Petr is somebody he could talk with after discharge. The patient attended group programming but was somewhat peripheral to the discussions. He did employ the use of journaling as a therapeutic intervention. Overall, the patient felt dramatically improved by the day of discharge and had developed a safety plan for use at home. DAY OF DISCHARGE ASSESSMENT: Today the patient is requesting discharge. He feels he is ready to go home and denies any suicidal thinking. He has been involved in his discharge planning, and agrees if he gets to the point of suicidality again, he will present to the emergency room for evaluation. His mother will be coming to town today this afternoon, and his friend Petr will be able to pick him up for discharge after 11. Today he is casually and appropriately dressed and groomed having just gotten out of the shower. Gait and station are within normal limits. Affect is smiling. Speech is of normal rate volume and tone. Thoughts are organized and goal directed, and without evidence of thought disorder. Recent and remote memory intact per conversation. Intelligence is estimated to be average. Insight and judgment are improved over admission. Laboratory Labs were performed while on the medical floor Total Time Total Time Spent (min): Greater than 30 minutes Total Time Included: examination of the patient, discharge planning, medication reconciliation, communication with other providers Tobacco Cessation at Discharge Smoking Status: Never Smoker FDA approved Prescription: non-smoker Problem Qualifiers (1) Depression: Depression Type: major depressive disorder Major depression recurrence: single episode Active/Remission status: currently active Major depression episode severity: severe Psychotic features: without psychotic features Qualified Codes: F32.2 - Major depressive disorder, single episode, severe without psychotic features
== END 2017-02-04 11:52 | disposition home or self-care (01) | DRG 885 ==
LOC: C.MHU 15:26
PROVIDERS: ADMIT Psychiatry & Neurology Psychiatry; ATTEND Psychiatry & Neurology Psychiatry
DX: F33.9 Major depressive disorder, recurrent, unspecified (principal); R45.851 Suicidal ideations; S51.801A Unspecified open wound of right forearm, initial encounter; S51.802A Unspecified open wound of left forearm, initial encounter; X78.8XXA Intentional self-harm by other sharp object, initial encounter; Y92.169 Unspecified place in school dormitory as the place of occurrence of the external cause; E66.3 Overweight; Z68.31 Body mass index [BMI] 31.0-31.9, adult

== ENCOUNTER 2017-02-06 13:13 | Emergency (ER) | payer OTHER ==
[~2017-02-06] VITALS: Ht 165.1 cm; Wt 85.3 kg
[~2017-02-06 13:13] MED LIST: ZLF/100 PO
[2017-02-06 13:15] VITALS: BP 135/86; PULSE 99; TEMP 36.8; O2SAT 93; Ht 165.1 cm; Wt 85.3 kg
--- NOTE | 2017-02-06 13:35 | EMERGENCY ROOM VISIT NOTE ---
ED Visit Note First contact with patient: 13:23 CHIEF COMPLAINT: Suture removal bilateral forearm lacerations HISTORY of present illness: This 21-year-old male patient returns to the ED today for removal of sutures that were placed 10 days ago into both his forearms.. There has been no swelling, redness, or drainage from the wound. The patient feels like the laceration is healing well. REVIEW OF SYSTEMS: 6 system review was performed and was negative unless stated otherwise in history of present illness. PMH: The patient is healthy; suicide attempt, depression, asthma SOCIAL HISTORY: Patient lives with 2 roommates. The patient denies any tobacco use but admits to occasional alcohol use. PHYSICAL EXAM: Vital Signs: Were reviewed Reviewed Nurse's notes. GEN.: 21-year -old white male appears in no acute distress. MENTAL Status: Alert and oriented 3. BILATERAL FOREARMS there are sutured wounds on the volar aspects of both forearms. The wounds are healing well. No erythema or edema noted. EMERGENCY DEPARTMENT COURSE: The sutures were removed without any difficulty and there was no separation of the wound edges. DIAGNOSIS: Healing bilateral forearm lacerations and suture removal DISCHARGE INSTRUCTIONS AND TREATMENT: Wash any remaining crusts off of the wound today and resume your normal activities. Problem List Medical Problems: (1) No pertinent past psychiatric history Status: Chronic Current/Historical Medications Scheduled Sertraline HCl (Sertraline HCl), 150 MG PO DAILY Allergies Coded Allergies: No Known Allergies (Unverified , 01/26/17) Vital Signs Date Time Temp Pulse Resp B/P Pulse Ox O2 Delivery O2 Flow Rate FiO2 02/06/17 13:15 36.8 99 16 135/86 93 Room Air Departure Information Referrals No Doctor, Assigned (PCP) Patient Instructions [facility]
== END 2017-02-06 13:43 | disposition home or self-care (01) ==
LOC: C.EDB 13:14 → C.EDD 13:43
DX: S51.811A Laceration without foreign body of right forearm, initial encounter (principal); S51.812A Laceration without foreign body of left forearm, initial encounter; X58.XXXA Exposure to other specified factors, initial encounter; F32.9 Major depressive disorder, single episode, unspecified; J45.909 Unspecified asthma, uncomplicated; Z91.5 Personal history of self-harm

== ENCOUNTER 2017-08-28 14:35 | Emergency (ER) | payer OTHER ==
[~2017-08-28] VITALS: Ht 165.1 cm; Wt 86.7 kg
[2017-08-28 14:37] VITALS: TEMP 36.5; Ht 165.1 cm; Wt 86.7 kg
[2017-08-28 15:16] LABS: BASO % 0.8 %; BASO ABS # 0.07 K/uL (0-0.2); COMPLETE YES; EOS % 18.5 %; IG% 0.6 %; LYMPH % 32.9 %; LYMPH ABS # 2.81 K/uL (1.2-3.4); MEAN CELL VOLUME 88.1 fL (80-100); MEAN CORPUSCULAR HEMOGLOBIN 30.5 pg (25-34); MEAN CORPUSCULAR HGB CONC 34.6 g/dl (32-36); MEAN PLATELET VOLUME 9.1 fL (7.4-10.4); MONO % 6.8 %; NEUT % 40.4 %; PLATELET COUNT 353 K/uL (130-400); RED BLOOD COUNT 5.45 M/uL (4.7-6.1); WHITE BLOOD COUNT 8.55 K/uL (4.8-10.8)
[2017-08-28 15:22] LABS: PROTHROMBIN TIME (PATIENT) 10.8 SECONDS (9.0-12.0)
--- NOTE | 2017-08-28 15:27 | DIAGNOSTIC IMAGING REPORT ---
SINGLE VIEW CHEST CLINICAL HISTORY: Cough with the sensation of tasting blood in the mouth. FINDINGS: An AP, portable, upright chest radiograph is obtained. No prior studies are available for comparison at the time of dictation. The examination is degraded by portable technique and patient rotation. The cardiomediastinal silhouette is unremarkable. The lungs and pleural spaces are clear. No pneumothorax is seen. The bony thorax is grossly intact. IMPRESSION: No acute cardiopulmonary abnormality. Electronically signed by: Bruno Lockwood M.D. 08/28/2017 3:26 PM Dictated Date/Time: 08/28/2017 3:25 PM
[2017-08-28 15:34] LABS: BUN/CREATININE RATIO 15.4 (10-20); CALCIUM 9.3 mg/dl (8.5-10.1); CREATININE 0.97 mg/dl (0.60-1.40); POTASSIUM 4.1 mmol/L (3.5-5.1)
[2017-08-28 17:45] VITALS: BP 127/88; PULSE 78; O2SAT 97
--- NOTE | 2017-08-28 20:46 | EMERGENCY ROOM VISIT NOTE ---
History Report prepared by Yovanyibregan: Donn Petit Under the Supervision of: Dr. Emir Patterson D.O. First contact with patient: 14:40 Chief Complaint: OTHER COMPLAINT Stated Complaint: TASTING BLOOD WHEN COUGHING OR SNEEZING History of Present Illness The patient is a 21 year old male who presents to the Emergency Room with complaints of persistent tasting blood with coughing and sneezing beginning about two weeks ago. He denies recent blood noses. Pt denies headache, change in vision, fevers, chest pain, shortness of breath, nausea, vomiting, diarrhea, pain with urination, leg swelling, and melena. He also complains of being able to hear himself breathing. The patient is on Zoloft. Patient denies swelling of calves, recent trips, history of immobilization or recent surgery, prior history of DVT, hemoptysis, history of malignancy, history of smoking, or control/estrogen use. He admits to occasional alcohol use. No recent cough or infection. Source of History: patient Onset: Two weeks ago Quality: other (tasting blood with coughing or sneezing) Timing: other (persistent) Associated Symptoms: No fevers, No chest pain, No SOB, No vomiting, No abdominal pain, No diarrhea, No urinary symptoms Note: The patient denies recent nose bleeds, or leg swelling. Review of Systems See HPI for pertinent positives & negatives. A total of 10 systems reviewed and were otherwise negative. Past Medical & Surgical Medical Problems: (1) Antihistamines overdose (2) Depression (3) No chronic diseases present (4) No pertinent past psychiatric history (5) Self-inflicted laceration of wrist (6) Suicide attempt Family History Bipolar disorder Colon cancer Depression Heart disease Social History Smoking Status: Never Smoker Drug Use: marijuana Marital Status: single Housing Status: lives with roommate Occupation Status: [employer] student Current/Historical Medications Scheduled Sertraline HCl (Sertraline HCl), 150 MG PO DAILY Allergies Coded Allergies: No Known Allergies (Unverified , 08/28/17) Physical Exam Vital Signs Date Time Temp Pulse Resp B/P (MAP) Pulse Ox O2 Delivery O2 Flow Rate FiO2 08/28/17 17:45 78 18 127/88 97 Room Air 08/28/17 16:46 89 20 126/76 94 Room Air 08/28/17 14:37 36.5 73 18 150/99 95 Room Air Physical Exam GENERAL: Sitting up in bed, alert, well appearing, well nourished, no distress, non-toxic. Ambulates without difficulty. EYE EXAM: normal conjunctiva. OROPHARYNX: no exudate, no erythema, lips, buccal mucosa, and tongue normal and mucous membranes are moist NECK: supple, no nuchal rigidity, no adenopathy, non-tender. No stridor. LUNGS: Clear to auscultation. Normal chest wall mechanics HEART: no murmurs, S1 normal and S2 normal ABDOMEN: abdomen soft, non-tender, normo-active bowel sounds, no masses, no rebound or guarding. BACK: Back is symmetrical on inspection and there is no deformity, no midline tenderness, no CVA tenderness. SKIN: no rashes and no bruising UPPER EXTREMITIES: upper extremities are grossly normal. LOWER EXTREMITIES: No pitting edema. Calves are equal bilateral NEURO EXAM: Normal sensorium, cranial nerves II-XII grossly intact, normal speech, no gross weakness of arms, no gross weakness of legs. Medical Decision & Procedures ER Provider Diagnostic Interpretation: Radiology results as stated below per my review and the radiologist's interpretation: SINGLE VIEW CHEST FINDINGS: An AP, portable, upright chest radiograph is obtained. No prior studies are available for comparison at the time of dictation. The examination is degraded by portable technique and patient rotation. The cardiomediastinal silhouette is unremarkable. The lungs and pleural spaces are clear. No pneumothorax is seen. The bony thorax is grossly intact. IMPRESSION: No acute cardiopulmonary abnormality. Electronically signed by: Bruno Lockwood M.D. 08/28/2017 3:26 PM Laboratory Results 08/28/17 15:00 Red Blood Count 5.45, Mean Corpuscular Volume 88.1, Mean Corpuscular Hemoglobin 30.5, Mean Corpuscular Hemoglobin Concent 34.6, Mean Platelet Volume 9.1, Neutrophils (%) (Auto) 40.4, Lymphocytes (%) (Auto) 32.9, Monocytes (%) (Auto) 6.8, Eosinophils (%) (Auto) 18.5, Basophils (%) (Auto) 0.8, Neutrophils # (Auto ) 3.46, Lymphocytes # (Auto) 2.81, Monocytes # (Auto) 0.58, Eosinophils # (Auto ) 1.58, Basophils # (Auto) 0.07 08/28/17 15:00 Test 08/28/17 15:00 White Blood Count 8.55 K/uL (4.8-10.8) Red Blood Count 5.45 M/uL (4.7-6.1) Hemoglobin 16.6 g/dL (14.0-18.0) Hematocrit 48.0 % (42-52) Mean Corpuscular Volume 88.1 fL (80-100) Mean Corpuscular Hemoglobin 30.5 pg (25-34) Mean Corpuscular Hemoglobin Concent 34.6 g/dl (32-36) Platelet Count 353 K/uL (130-400) Mean Platelet Volume 9.1 fL (7.4-10.4) Neutrophils (%) (Auto) 40.4 % Lymphocytes (%) (Auto) 32.9 % Monocytes (%) (Auto) 6.8 % Eosinophils (%) (Auto) 18.5 % Basophils (%) (Auto) 0.8 % Neutrophils # (Auto) 3.46 K/uL (1.4-6.5) Lymphocytes # (Auto) 2.81 K/uL (1.2-3.4) Monocytes # (Auto) 0.58 K/uL (0.11-0.59) Eosinophils # (Auto) 1.58 K/uL (0-0.5) Basophils # (Auto) 0.07 K/uL (0-0.2) RDW Standard Deviation 40.5 fL (36.4-46.3) RDW Coefficient of Variation 12.8 % (11.5-14.5) Immature Granulocyte % (Auto) 0.6 % Immature Granulocyte # (Auto) 0.05 K/uL (0.00-0.02) Prothrombin Time 10.8 SECONDS (9.0-12.0) Prothromb Time International Ratio 1.0 (0.9-1.1) D-Dimer < 190 ug/L FEU (0-500) Anion Gap 7.0 mmol/L (3-11) Est Creatinine Clear Calc Drug Dose 119.9 ml/min Estimated GFR () 127.0 Estimated GFR (Non- 109.6 BUN/Creatinine Ratio 15.4 (10-20) Calcium Level 9.3 mg/dl (8.5-10.1) Laboratory results per my review. ED Course ED COURSE: Vital signs were reviewed and showed hypertension. The patients medical record was reviewed The above diagnostic studies were performed and reviewed. ED treatments and interventions as stated above. 1441: The patient was evaluated in room B3B. A complete history and physical examination was performed. 1634: I updated the patient on his test results. 1745: Upon reevaluation, the patient is resting comfortably. I discussed my findings with the patient and he understands and agrees with the treatment plan. Based on the patients age, coexisting illnesses, exam and lab findings the decision to treat as an outpatient was made. The patient remained stable while under my care. The patient appeared well at the time of discharge. Medical Decision Differential diagnoses includes but is not limited to epistaxis, oral lesion, esophageal scar, pneumonia, bronchitis, COPD/Asthma exacerbation, pneumothorax, pulmonary embolism, congestive heart failure, acute coronary syndrome. Patient is a 21-year-old male who presents to ER following having the taste of blood in his mouth when he sneezes or coughs for the past 2 days. He has no other complaints. No chest pain or shortness of breath. No history of blood clots. D-dimer is negative. CBC along with BMP was unremarkable. Chest x-ray shows no focal infiltrate. Oropharynx and nasopharynx was unremarkable. Recommended discharge and follow with the PCP in 2 days this continues. He may need skilled by ENT if he continues to have this taste in his mouth. Not consistent with an esophageal tear. Discussed with Pt concerning signs and symptoms to watch out for. Pt was instructed to follow up with their PCP and discussed with the patient their option to return to the ED at anytime for persistent or worsening symptoms. The appropriate anticipatory guidance and out- patient management, including indications for return to the emergency department , were explained at length to the patient and understood. Medication Reconcilliation Current Medication List: was personally reviewed by me Blood Pressure Screening Patient's blood pressure: Elevated blood pressure Blood pressure disposition: Elevated BP felt to be situational Impression Primary Impression: Hemoptysis Scribe Attestation The scribe's documentation has been prepared under my direction and personally reviewed by me in its entirety. I confirm that the note above accurately reflects all work, treatment, procedures, and medical decision making performed by me. Departure Information Dispostion Home / Self-Care Referrals No Doctor, Assigned (PCP) Forms HOME CARE DOCUMENTATION FORM, IMPORTANT VISIT INFORMATION, WORK / SCHOOL INSTRUCTIONS Patient Instructions [facility] Additional Instructions Please follow up with your primary care doctor with in the next 24 hours. Any worsening of your symptoms, please return to the ED immediately. This includes any fevers greater than 100.4, worsening pain, chest pain, shortness breath, persistent nausea, vomiting, unable to eat or drink, or any other concerning signs or symptoms from your standpoint.
== END 2017-08-28 17:50 | disposition home or self-care (01) ==
LOC: C.EDB 14:36
DX: R04.2 Hemoptysis (principal); F32.9 Major depressive disorder, single episode, unspecified; Z91.5 Personal history of self-harm; Z81.8 Family history of other mental and behavioral disorders; Z80.0 Family history of malignant neoplasm of digestive organs; Z79.899 Other long term (current) drug therapy

== ENCOUNTER 2017-11-30 16:36 | Emergency (ER) | payer OTHER ==
[~2017-11-30] VITALS: Ht 165.1 cm; Wt 85.6 kg
[2017-11-30 16:51] VITALS: TEMP 36.6; Ht 165.1 cm; Wt 85.6 kg
[2017-11-30 17:48] LABS: BASO % 0.5 %; BASO ABS # 0.09 K/uL (0-0.2); EOS % 34.1 %; EOS ABS # 5.67 K/uL (0-0.5); HEMATOCRIT 46.3 % (42-52); HEMOGLOBIN 16.4 g/dL (14.0-18.0); IG# 0.11 K/uL (0.00-0.02); LYMPH % 21.6 %; LYMPH ABS # 3.59 K/uL (1.2-3.4); MEAN CELL VOLUME 84.2 fL (80-100); MEAN CORPUSCULAR HEMOGLOBIN 29.8 pg (25-34); MEAN CORPUSCULAR HGB CONC 35.4 g/dl (32-36); MEAN PLATELET VOLUME 8.9 fL (7.4-10.4); MONO % 5.4 %; MONO ABS # 0.89 K/uL (0.11-0.59); NEUT % 37.7 %; NEUT ABS # 6.26 K/uL (1.4-6.5); PLATELET COUNT 381 K/uL (130-400); RED CELL DISTRIBUTION WIDTH CV 13.1 % (11.5-14.5); RED CELL DISTRIBUTION WIDTH SD 39.9 fL (36.4-46.3); WHITE BLOOD COUNT 16.61 K/uL (4.8-10.8)
[2017-11-30 18:01] LABS: CALCIUM 9.3 mg/dl (8.5-10.1); CREATININE 0.94 mg/dl (0.60-1.40); POTASSIUM 3.4 mmol/L (3.5-5.1)
--- NOTE | 2017-11-30 18:05 | DIAGNOSTIC IMAGING REPORT ---
CHEST ONE VIEW PORTABLE CLINICAL HISTORY: cough COMPARISON STUDY: No previous studies for comparison. FINDINGS: The bones soft tissues and hemidiaphragms are normal. The cardiomediastinal silhouette is normal. The lungs are clear. The pulmonary vasculature is normal. IMPRESSION: Negative chest. The above report was generated using voice recognition software. It may contain grammatical, syntax or spelling errors. Electronically signed by: Rodney Bernal M.D. 11/30/2017 6:04 PM Dictated Date/Time: 11/30/2017 6:03 PM
[2017-11-30 18:28] LABS: INFLUENZA B ANTIGEN Neg for Influ B (NEG)
[2017-11-30] MEDS ORDERED: AZITHROMYCIN 250 MG TAB PO STA (18:43)
[2017-11-30] MEDS ORDERED: BENZONATATE 100MG CAP PO ONE (18:45)
[2017-11-30] MEDS ORDERED: BENZ100C18 PO (18:45)
[2017-11-30] MEDS ORDERED: AZIT-57 PO (18:45)
[2017-11-30] MEDS ORDERED: ALBUTEROL 0.083% NEBU SOLN 3 ML VIAL INH STA (18:54)
[2017-11-30] MEDS ORDERED: ALBUT/IPRATROP 3MG/0.5MG NEB 3 ML VIAL ONE ×2 (18:55→19:46)
[2017-11-30] MEDS ORDERED: ALBUTEROL HFA 8 GM INHALER INH ONE (19:30)
[2017-11-30 20:30] VITALS: BP 150/97; PULSE 107; O2SAT 95
--- NOTE | 2017-11-30 21:56 | EMERGENCY ROOM VISIT NOTE ---
History Report prepared by Obinna: Simone Dixon Under the Supervision of: Dr. Emir Patterson D.O. First contact with patient: 17:17 Chief Complaint: COUGH Stated Complaint: EXCESS COUGH, CHEST VIBRATES, SHORT OF BREATH Nursing Triage Summary: Pt reports cough, non prod, x 1 week. Body aches. Itchy throat. Pt states, " When I breathe my chest is vibrating." History of Present Illness The patient is a 22 year old male who presents to the Emergency Room with complaints of a persistent cough for the past week which is worse with lying down. He additionally states that he is having some shortness of breath, and he states that it feels like his chest is vibrating when he takes a deep breath. He is additionally complaining of a sore throat, and he states that he had some diarrhea the other day. The patient was diagnosed with asthma as a child. He denies any sick contacts. Patient denies swelling of calves, recent trips, history of immobilization or recent surgery, prior history of DVT, hemoptysis, history of malignancy, history of smoking, or control/estrogen use. Pt denies headache, change in vision, fevers, runny nose, ear pain, congestion, chest pain, abdominal pain, nausea, vomiting, pain with urination, and melena. Patient denies diabetes, hypertension, hyperlipidemia, and CAD. Patient denies swelling of calves, recent trips, history of immobilization or recent surgery, prior history of DVT, hemoptysis, history of malignancy, history of smoking, or control/estrogen use. Source of History: patient Onset: a week ago Position: other (global) Quality: other (cough) Timing: other (persistent) Associated Symptoms: + SOB Note: Associated symptoms: Chest vibrating Review of Systems See HPI for pertinent positives & negatives. A total of 10 systems reviewed and were otherwise negative. Past Medical & Surgical Medical Problems: (1) Antihistamines overdose (2) Depression (3) No chronic diseases present (4) No pertinent past psychiatric history (5) Self-inflicted laceration of wrist (6) Suicide attempt Family History Bipolar disorder Colon cancer Depression Heart disease Social History Smoking Status: Never Smoker Drug Use: marijuana Marital Status: single Housing Status: lives with roommate Occupation Status: [employer] student Current/Historical Medications Scheduled Azithromycin (Azithromycin), 250 MG PO DAILY Benzonatate (Tessalon Perles), 100 MG PO TID Sertraline HCl (Sertraline HCl), 150 MG PO DAILY Allergies Coded Allergies: No Known Allergies (Unverified , 11/30/17) Physical Exam Vital Signs Date Time Temp Pulse Resp B/P (MAP) Pulse Ox O2 Delivery O2 Flow Rate FiO2 11/30/17 20:30 107 20 150/97 95 11/30/17 20:02 97 22 130/75 90 Room Air 11/30/17 18:52 96 20 132/98 90 Room Air 11/30/17 17:48 97 Room Air 11/30/17 16:51 36.6 93 18 134/80 94 Room Air Physical Exam GENERAL: Sitting up in bed, with persistent, dry, non-productive cough. Able to talk in full sentences. EYE EXAM: normal conjunctiva. OROPHARYNX: no exudate, no erythema, lips, buccal mucosa, and tongue normal and mucous membranes are moist NECK: supple, no nuchal rigidity, no adenopathy, non-tender LUNGS: Faint wheezing bilateral bases. Normal chest wall mechanics HEART: no murmurs, S1 normal and S2 normal ABDOMEN: abdomen soft, non-tender, normo-active bowel sounds, no masses, no rebound or guarding. BACK: Back is symmetrical on inspection and there is no deformity, no midline tenderness, no CVA tenderness. SKIN: no rashes and no bruising UPPER EXTREMITIES: upper extremities are grossly normal. LOWER EXTREMITIES: Calves are equal bilaterally. No pitting edema. NEURO EXAM: Normal sensorium, cranial nerves II-XII grossly intact, normal speech, no gross weakness of arms, no gross weakness of legs. Medical Decision & Procedures ER Provider Diagnostic Interpretation: Radiology results as stated below per my review and the radiologist's interpretation: CHEST ONE VIEW PORTABLE CLINICAL HISTORY: cough COMPARISON STUDY: No previous studies for comparison. FINDINGS: The bones soft tissues and hemidiaphragms are normal. The cardiomediastinal silhouette is normal. The lungs are clear. The pulmonary vasculature is normal. IMPRESSION: Negative chest. The above report was generated using voice recognition software. It may contain grammatical, syntax or spelling errors. Electronically signed by: Rodney Bernal M.D. 11/30/2017 6:04 PM Dictated Date/Time: 11/30/2017 6:03 PM Laboratory Results 11/30/17 17:33 Red Blood Count 5.50, Mean Corpuscular Volume 84.2, Mean Corpuscular Hemoglobin 29.8, Mean Corpuscular Hemoglobin Concent 35.4, Mean Platelet Volume 8.9, Neutrophils (%) (Auto) 37.7, Lymphocytes (%) (Auto) 21.6, Monocytes (%) (Auto) 5.4, Eosinophils (%) (Auto) 34.1, Basophils (%) (Auto) 0.5, Neutrophils # (Auto ) 6.26, Lymphocytes # (Auto) 3.59, Monocytes # (Auto) 0.89, Eosinophils # (Auto ) 5.67, Basophils # (Auto) 0.09 11/30/17 17:33 Test 11/30/17 17:33 11/30/17 17:45 White Blood Count 16.61 K/uL (4.8-10.8) Red Blood Count 5.50 M/uL (4.7-6.1) Hemoglobin 16.4 g/dL (14.0-18.0) Hematocrit 46.3 % (42-52) Mean Corpuscular Volume 84.2 fL (80-100) Mean Corpuscular Hemoglobin 29.8 pg (25-34) Mean Corpuscular Hemoglobin Concent 35.4 g/dl (32-36) Platelet Count 381 K/uL (130-400) Mean Platelet Volume 8.9 fL (7.4-10.4) Neutrophils (%) (Auto) 37.7 % Lymphocytes (%) (Auto) 21.6 % Monocytes (%) (Auto) 5.4 % Eosinophils (%) (Auto) 34.1 % Basophils (%) (Auto) 0.5 % Neutrophils # (Auto) 6.26 K/uL (1.4-6.5) Lymphocytes # (Auto) 3.59 K/uL (1.2-3.4) Monocytes # (Auto) 0.89 K/uL (0.11-0.59) Eosinophils # (Auto) 5.67 K/uL (0-0.5) Basophils # (Auto) 0.09 K/uL (0-0.2) RDW Standard Deviation 39.9 fL (36.4-46.3) RDW Coefficient of Variation 13.1 % (11.5-14.5) Immature Granulocyte % (Auto) 0.7 % Immature Granulocyte # (Auto) 0.11 K/uL (0.00-0.02) Anion Gap 8.0 mmol/L (3-11) Est Creatinine Clear Calc Drug Dose 121.9 ml/min Estimated GFR () 131.0 Estimated GFR (Non- 113.0 BUN/Creatinine Ratio 11.1 (10-20) Calcium Level 9.3 mg/dl (8.5-10.1) Influenza Type A Antigen Neg for Influ A (NEG) Influenza Type B Antigen Neg for Influ B (NEG) Laboratory results per my review. Medications Administered Medications (Trade) Dose Ordered Sig/Rasheeda Route Start Time Stop Time Status Last Admin Dose Admin Benzonatate (Tessalon Perles Cap) 100 mg NOW ONCE PO 11/30/17 18:45 11/30/17 18:46 DC 11/30/17 18:49 100 MG Azithromycin (Zithromax Tab) 500 mg NOW STAT PO 11/30/17 18:43 11/30/17 18:44 DC 11/30/17 18:50 500 MG Albuterol Sulfate (Ventolin 0.083% 2.5MG/3ML Neb) 2.5 mg NOW STAT INH 11/30/17 18:54 11/30/17 18:55 DC 11/30/17 18:58 2.5 MG Prednisone (PredniSONE TAB) 60 mg NOW STAT PO 11/30/17 18:54 11/30/17 18:55 DC 11/30/17 18:58 60 MG Albuterol (Ventolin Hfa Inhaler) 2 puffs NOW ONCE INH 11/30/17 19:30 11/30/17 19:31 DC 11/30/17 19:48 2 PUFFS Albuterol/ Ipratropium (Duoneb) 3 ml STK-MED ONCE .ROUTE 11/30/17 19:46 11/30/17 19:47 DC 11/30/17 19:48 3 ML ECG Indication: SOB/dyspnea Rate (beats per minute): 80 Rhythm: sinus rhythm Findings: no ectopy, other (normal axis) Change: Patient's electrocardiogram interpreted by me. ED Course ED COURSE: Vital signs were reviewed and showed normal vitals The patients medical record was reviewed The above diagnostic studies were performed and reviewed. ED treatments and interventions as stated above. 1717: The patient was evaluated in room B12. A complete history and physical examination was performed. 1842: I reevaluated the patient, and I updated him on the results thus far. I ordered Azithromycin 500mg PO 1844: Benzonatate 100mg PO 1853: Prednisone 60mg PO, Albuterol Sulfate 2.5mg INH 1929: Albuterol 2 puffs INH 1945: DuoNeb 3ml INH 1954: Upon reevaluation, the patient is feeling better after the last Neb. He is satting at 92% on room air.I discussed my findings with the patient and he understands and agrees with the treatment plan. Based on the patients age, coexisting illnesses, exam and lab findings the decision to treat as an outpatient was made. The patient remained stable while under my care. The patient appeared well at the time of discharge. Medical Decision Differential diagnoses includes but is not limited to pneumonia, bronchitis, COPD/Asthma exacerbation, pneumothorax, pulmonary embolism, congestive heart failure, acute coronary syndrome. Patient is a 22-year-old male with a remote history of asthma that presents to ER for a persistent cough that has been present for the past week. Patient also admits to a mildly sore throat. CBC shows a leukocytosis of 16,000. BMP was unremarkable. Chest x-ray shows no focal infiltrate. Influence was negative. Based on symptoms I do believe this is consistent with a acute bronchitis. Due to the duration and negative fluid he was given a prescription of azithromycin. He was given a dose here. Pulse ox ranged from 94-90%. He was given 2 neb treatments and steroids. He felt significant better. His wheezing in the lower lobes improved significant. He was discharged follow-up with PCP as an outpatient. Discussed with Pt concerning signs and symptoms to watch out for. Pt was instructed to follow up with their PCP and discussed with the patient their option to return to the ED at anytime for persistent or worsening symptoms. The appropriate anticipatory guidance and out-patient management, including indications for return to the emergency department, were explained at length to the patient and understood. Medication Reconcilliation Current Medication List: was personally reviewed by me Blood Pressure Screening Patient's blood pressure: Normal blood pressure Impression Primary Impression: Acute bronchitis Scribe Attestation The scribe's documentation has been prepared under my direction and personally reviewed by me in its entirety. I confirm that the note above accurately reflects all work, treatment, procedures, and medical decision making performed by me. Departure Information Dispostion Home / Self-Care Prescriptions Azithromycin (Azithromycin) 250 Mg Tab 250 MG PO DAILY for 4 Days Prov: Emir Patterson, DO 11/30/17 Benzonatate (TESSALON PERLES) 100 Mg Cap 100 MG PO TID for coughing, #30 CAP Prov: Emir Patterson, DO 11/30/17 Referrals No Doctor, Assigned (PCP) Forms HOME CARE DOCUMENTATION FORM, IMPORTANT VISIT INFORMATION Patient Instructions Bronchitis Acute, My [facility] Additional Instructions Please follow up with your primary care doctor with in the next 24 hours. Any worsening of your symptoms, please return to the ED immediately. This includes any fevers greater than 100.4, worsening pain, chest pain, shortness breath, persistent nausea, vomiting, unable to eat or drink, or any other concerning signs or symptoms from your standpoint. Please take antibiotics as prescribed. Please take Tessalon Perles as needed for coughing. Problem Qualifiers Primary Impression: Acute bronchitis Bronchitis organism: unspecified organism Qualified Codes: J20.9 - Acute bronchitis, unspecified
== END 2017-11-30 20:33 | disposition home or self-care (01) ==
LOC: C.EDB 16:37
DX: R05 Cough (principal); R06.2 Wheezing; R07.0 Pain in throat; R06.02 Shortness of breath; R19.7 Diarrhea, unspecified; D72.829 Elevated white blood cell count, unspecified; J45.909 Unspecified asthma, uncomplicated; F32.9 Major depressive disorder, single episode, unspecified; F12.90 Cannabis use, unspecified, uncomplicated; Z81.8 Family history of other mental and behavioral disorders; Z80.0 Family history of malignant neoplasm of digestive organs; Z82.49 Family history of ischemic heart disease and other diseases of the circulatory system

== ENCOUNTER 2018-01-11 08:04 | Emergency (ER) | payer OTHER ==
[~2018-01-11] VITALS: Ht 165.1 cm; Wt 88.8 kg
[~2018-01-11 08:04] MED LIST changes: +AZIT-57 PO
[2018-01-11 08:06] VITALS: Ht 165.1 cm; Wt 88.8 kg
[2018-01-11] MEDS ORDERED: DEXAMETHASONE SOD INJ 4 MG/ML VIAL IV STA (08:22)
[2018-01-11] MEDS ORDERED: ALBUT/IPRATROP 3MG/0.5MG NEB 3 ML VIAL INH STA ×2 (08:22→09:14)
[2018-01-11 08:44] VITALS: O2SAT 95
[2018-01-11 08:48] LABS: BASO % 0.7 %; BASO ABS # 0.06 K/uL (0-0.2); EOS % 15.7 %; EOS ABS # 1.34 K/uL (0-0.5); HEMATOCRIT 43.5 % (42-52); HEMOGLOBIN 15.8 g/dL (14.0-18.0); IG# 0.15 K/uL (0.00-0.02); LYMPH % 7.6 %; LYMPH ABS # 0.65 K/uL (1.2-3.4); MEAN CELL VOLUME 85.8 fL (80-100); MEAN CORPUSCULAR HEMOGLOBIN 31.2 pg (25-34); MEAN CORPUSCULAR HGB CONC 36.3 g/dl (32-36); MEAN PLATELET VOLUME 8.8 fL (7.4-10.4); MONO ABS # 0.85 K/uL (0.11-0.59); NEUT % 64.2 %; NEUT ABS # 5.49 K/uL (1.4-6.5); PLATELET COUNT 291 K/uL (130-400); RED CELL DISTRIBUTION WIDTH CV 13.3 % (11.5-14.5); RED CELL DISTRIBUTION WIDTH SD 41.6 fL (36.4-46.3); WHITE BLOOD COUNT 8.54 K/uL (4.8-10.8)
[2018-01-11] MEDS ORDERED: ONDANSETRON INJ 2 MG/ML 2 ML VIAL IV STA (08:48)
--- NOTE | 2018-01-11 08:49 | DIAGNOSTIC IMAGING REPORT ---
CHEST ONE VIEW PORTABLE CLINICAL HISTORY: Shortness of breath and wheezing. COMPARISON STUDY: Chest radiograph November 30, 2017. FINDINGS: Lung volumes are at the lower limits of normal. There is no consolidation to suggest pneumonia. Pulmonary vascularity is normal. Cardiomediastinal silhouette is normal. IMPRESSION: No acute cardiopulmonary findings. Electronically signed by: Mohit Rogers M.D. 01/11/2018 8:47 AM Dictated Date/Time: 01/11/2018 8:47 AM
[2018-01-11 09:00] LABS: INR 1.1 (0.9-1.1); PTT PATIENT 28.5 SECONDS (21.0-31.0)
[2018-01-11 09:06] LABS: CREATININE 1.13 mg/dl (0.60-1.40); POTASSIUM 3.6 mmol/L (3.5-5.1)
[2018-01-11] MEDS ORDERED: SODIUM CHLORIDE 0.9% 1000ML 1,000 ML IV STA (09:14)
[2018-01-11 09:58] LABS: INFLUENZA B ANTIGEN Neg for Influ B (NEG)
[2018-01-11] MEDS ORDERED: OPTIRAY 320 IV PRN (10:00)
[2018-01-11] MEDS ORDERED: KETOROLAC TROMETHAMINE 30 MG/ML VIAL IV STA (10:04)
[2018-01-11] MEDS ORDERED: ACETAMINOPHEN 500 MG TAB PO STA (10:04)
--- NOTE | 2018-01-11 10:36 | DIAGNOSTIC IMAGING REPORT ---
CT ANGIOGRAM OF THE CHEST CLINICAL HISTORY: Dyspnea. COMPARISON STUDY: Chest x-ray dated 01/11/2018. TECHNIQUE: Following the IV administration of 90 cc of Optiray 320, CT angiogram of the chest was performed from the upper abdomen to the thoracic inlet utilizing the pulmonary embolus protocol. Images are reviewed in the axial, sagittal, and coronal planes. 3-D MIPS images are created and assessed. IV contrast was administered without complication. A dose lowering technique was utilized adhering to the principles of ALARA. Examination is modestly degraded by motion artifact. CT DOSE: 406.52 mGy.cm FINDINGS: Thyroid: Imaged portions of the thyroid gland are normal in size and attenuation. Thoracic aorta: The thoracic aorta is normal in caliber and demonstrates standard 3-vessel arch anatomy. No dissection is seen. Pulmonary vasculature: The pulmonary trunk is normal in caliber. There are no filling defects identified in main, lobar, or proximal segmental pulmonary branches to suggest pulmonary embolus. Evaluation of the peripheral vessels is degraded by motion artifact. Heart: The heart is normal in size and configuration, and without pericardial effusion. Lungs and pleural spaces: There is patchy groundglass consolidation identified in the lower lobes bilaterally, right greater than left. No pleural effusion is identified. The trachea and central airways are clear. Mediastinum: There are numerous mildly enlarged mediastinal lymph nodes. A high right peritracheal node on image #227 measures 8 mm short axis. Prevascular nodes measure up to 8 mm short axis. Clarisa: There is bilateral hilar adenopathy. A favian aggregate on the right measures 3.8 x 2.1 cm as seen on image #158. Left hilar nodes measure up to 12 mm in short axis. Axillae: There is no axillary lymphadenopathy. Upper abdomen: The liver is enlarged and steatotic. A tiny hiatal hernia is identified. Skeletal structures: No lytic or blastic bony lesions are seen. IMPRESSION: 1. There is no evidence of central pulmonary embolus in the main, lobar, or proximal segmental pulmonary arteries. 2. There is patchy groundglass consolidation identified in the lower lobes bilaterally, likely representing an infectious/inflammatory pneumonitis. Clinical correlation will be required. 3. There is nonspecific mediastinal and hilar adenopathy. This may be on a reactive basis. Nonemergent follow-up with pulmonology is recommended. Follow-up as clinically warranted. 4. Hepatomegaly and hepatic steatosis. Electronically signed by: Bruno Lockwood M.D. 01/11/2018 10:35 AM Dictated Date/Time: 01/11/2018 10:16 AM
[2018-01-11] MEDS ORDERED: OSELTAMIVIR PHOSPHATE 75 MG CAP PO STA (11:36)
[2018-01-11] MEDS ORDERED: ALBUTEROL HFA 8 GM INHALER INH ONE (11:45)
[2018-01-11 11:53] VITALS: BP 137/68
[2018-01-11 12:08] VITALS: TEMP 36.8; O2SAT 91
[2018-01-11] MEDS ORDERED: OSEL75CA12 PO (12:18)
[2018-01-11] MEDS ORDERED: VNTHFA/IN INH (12:19)
--- NOTE | 2018-01-11 12:20 | EMERGENCY ROOM VISIT NOTE ---
ED Visit Note First contact with patient: 08:11 CC: Shortness of breath 1 day HISTORY OF PRESENT ILLNESS: Patient is a 22-year-old white male with past medical history significant for depression and remote history of asthma who presents emergency department for evaluation of progressively worsening shortness of breath that started yesterday morning. He states with him he woke up yesterday, he did not feel well, he noted some generalized body and muscle aches and felt hot, but did not take his temperature to see if he had a fever. He noted some minor nasal congestion. He states that as the day went on, he developed shortness of breath that was initially mild in onset and progressively worsened through this morning. He states that it is now difficult to take a deep breath, and states that when he does take a deep breath it makes him cough. His chest feels tight, but he denies any pain. He states that his cough is nonproductive. He was seen and evaluated here about a month ago for similar symptoms, he states this episode is worse. He was treated with antibiotics and inhaler for bronchitis at that time. He states his symptoms did not completely improve and he was given an additional inhaler by his primary care provider but the inhaler is empty. He has a remote history of asthma as a child. He admits to smoking marijuana daily, last smoked yesterday to try to help with his body aches. He is a student and has been exposed to people who have been ill. He denies any calf or leg pain or swelling. No personal or family history of DVT or PE. No recent prolonged immobilization or extended travel. REVIEW OF SYSTEMS: Review of systems as per HPI. All other systems reviewed were negative. 10 systems reviewed. PMH: Electronic medical records are reviewed and summarized as above/below. See Problem List. SOCIAL HISTORY: Patient lives at home with a roommate. College student. Denies tobacco use, smokes marijuana daily. PHYSICAL EXAM: Vital Signs: Reviewed Nurse's notes. Patient noted to be tachycardic in triage with heart rate in the mid 120s to mid 130s, oxygen saturation between 90 and 92%, drops to the upper 80s while speaking during exam. MENTAL STATUS: Patient is an ill although nontoxic-appearing 22-year-old white male who is awake and alert and in mild distress due to shortness of breath. He is able to speak in full sentences. He is sitting upright on the gurney. He has an intermittent dry cough. HEAD: Atraumatic, without temporal or scalp tenderness. EYES: PERRL, EOMI, no discharge or injection. EARS: Tympanic membranes intact, not inflamed, have normal contour. External canals clear. NOSE: Nares patent, turbinates edematous and boggy with clear rhinorrhea. MOUTH: Mucous membranes moist, no lesions, tongue and gums appear normal. THROAT: No pharyngeal injection, exudates, or tonsillar hypertrophy. Airway is patent. NECK: Supple, nontender, no lymphadenopathy. HEART: Regular rate and rhythm without murmurs, ectopy, gallops, or rubs. LUNGS: Breath sounds are diminished bilaterally, with inspiratory and expiratory wheezes noted. SKIN: Normal. NEUROLOGICAL: Sensory and motor functions grossly intact. Normal gait. EMERGENCY DEPARTMENT COURSE: The patient was seen and evaluated as above. His old records were reviewed. On exam he is tachycardic and borderline hypoxic. He is placed on a hospital monitor, IV access was obtained, laboratory studies were collected and EKG was performed. Laboratory studies including CBC with differential, coags, BMP, [id number] d-dimer and troponin I and an influenza swab were performed. Stat portable chest x-ray was obtained and was unremarkable. He was given Decadron 10 mg IV and a DuoNeb treatment. He did require supplemental oxygen with 3 L by nasal cannula. He asked for something for nausea, and was given Zofran 4 mg IV. He was reassessed after the first nebulizer treatment with limited relief, was given a second DuoNeb. At this point, his temperature was rechecked and he was noted to be febrile, temperature 38.6C orally. He was hydrated with a liter bolus of normal saline solution and given Toradol 30 mg and Tylenol 1 g orally for his fever, body and muscle aches. CT scan of the chest to rule out PE was performed. Patient history and physical exam and ED workup were reviewed with attending physician. The patient's laboratory studies were fairly unremarkable. White count is not elevated. H&H is normal. Coags are unremarkable and d-dimer is within normal limits. Electrolytes are without significant abnormality. Troponin is negative 1 with symptoms greater than 24 hours. EKG noted a sinus tachycardia at 109 bpm, no ectopy or acute ischemic changes. No change from review of prior EKGs. The patient's influenza swab was positive for influenza A. Contact precautions were initiated. Patient was reassessed after CT scan. He reported that he felt somewhat improved. Temperature was rechecked by myself and he was afebrile, 36.8C orally. He was less tachycardic, heart rate was in the low 100s. He was removed from the nasal cannula oxygen for several minutes , and maintain oxygen saturations between 90 [address] 92%. [address] findings were reviewed with the patient. There was no evidence for acute pulmonary embolus. Patchy groundglass consolidation in the lower lobes bilaterally likely representing infectious/inflammatory pneumonitis, which is likely related to the influenza. Reactive adenopathy was noted. All laboratory and diagnostic imaging studies were reviewed with the patient. He was afebrile at discharge, still mildly tachycardic, but otherwise oxygenating well on room air and it was felt that he could be safely discharged home. He will be placed on Tamiflu, was also given a an albuterol inhaler, he has a spacer at home from last month. Other supportive care measures were discussed including fever management and [id number] medications for symptomatic relief. He was educated on the worrisome signs or symptoms for which she should return to the emergency department, and was advised to follow- up with his primary care provider for recheck later this week or early next week. He expressed understanding of this and was agreeable. Differential diagnoses entertained included URI, bronchitis, pneumonia, pulmonary embolus, pneumothorax, reactive airway disease, asthma exacerbation, among others. Medication reconciliation: I attest that I have personally reviewed the patient' s current medication list. Blood pressure screening : Patient was found to have normal blood pressure on screening and does not require follow-up. CHEST ONE VIEW PORTABLE CLINICAL HISTORY: Shortness of breath and wheezing. COMPARISON STUDY: Chest radiograph November 30, 2017. FINDINGS: Lung volumes are at the lower limits of normal. There is no consolidation to suggest pneumonia. Pulmonary vascularity is normal. Cardiomediastinal silhouette is normal. IMPRESSION: No acute cardiopulmonary findings. CT ANGIOGRAM OF THE CHEST CLINICAL HISTORY: Dyspnea. COMPARISON STUDY: Chest x-ray dated 01/11/2018. TECHNIQUE: Following the IV administration of 90 cc of Optiray 320, CT angiogram of the chest was performed from the upper abdomen to the thoracic inlet utilizing the pulmonary embolus protocol. Images are reviewed in the axial, sagittal, and coronal planes. 3-D MIPS images are created and assessed. IV contrast was administered without complication. A dose lowering technique was utilized adhering to the principles of ALARA. Examination is modestly degraded by motion artifact. CT DOSE: 406.52 mGy.cm FINDINGS: Thyroid: Imaged portions of the thyroid gland are normal in size and attenuation. Thoracic aorta: The thoracic aorta is normal in caliber and demonstrates standard 3-vessel arch anatomy. No dissection is seen. Pulmonary vasculature: The pulmonary trunk is normal in caliber. There are no filling defects identified in main, lobar, or proximal segmental pulmonary branches to suggest pulmonary embolus. Evaluation of the peripheral vessels is degraded by motion artifact. Heart: The heart is normal in size and configuration, and without pericardial effusion. Lungs and pleural spaces: There is patchy groundglass consolidation identified in the lower lobes bilaterally, right greater than left. No pleural effusion is identified. The trachea and central airways are clear. Mediastinum: There are numerous mildly enlarged mediastinal lymph nodes. A high right peritracheal node on image #227 measures 8 mm short axis. Prevascular nodes measure up to 8 mm short axis. Clarisa: There is bilateral hilar adenopathy. A favian aggregate on the right measures 3.8 x 2.1 cm as seen on image #158. Left hilar nodes measure up to 12 mm in short axis. Axillae: There is no axillary lymphadenopathy. Upper abdomen: The liver is enlarged and steatotic. A tiny hiatal hernia is identified. Skeletal structures: No lytic or blastic bony lesions are seen. IMPRESSION: 1. There is no evidence of central pulmonary embolus in the main, lobar, or proximal segmental pulmonary arteries. 2. There is patchy groundglass consolidation identified in the lower lobes bilaterally, likely representing an infectious/inflammatory pneumonitis. Clinical correlation will be required. 3. There is nonspecific mediastinal and hilar adenopathy. This may be on a reactive basis. Nonemergent follow-up with pulmonology is recommended. Follow-up as clinically warranted. 4. Hepatomegaly and hepatic steatosis. Problem List Medical Problems: (1) Acute bronchitis Status: Resolved (2) Acute bronchitis Status: Resolved (3) Anticholinergic drug overdose Status: Resolved (4) Antihistamines overdose Status: Resolved (5) Asthma Status: Resolved (6) Cannabis Use, Unspecified, Uncomplicated Status: Chronic (7) Depression Status: Chronic (8) Encounter for removal of sutures Status: Resolved (9) Hemoptysis Status: Resolved (10) Hemoptysis Status: Resolved (11) Laceration Status: Resolved (12) No chronic diseases present Status: Resolved (13) No pertinent past psychiatric history Status: Resolved (14) Self-inflicted laceration of wrist Status: Resolved (15) Suicide attempt Status: Resolved (16) Suicide attempt Status: Resolved Current/Historical Medications Scheduled Albuterol Hfa (Ventolin Hfa), 2-4 PUFFS INH Q4 Oseltamivir (Tamiflu), 75 MG PO BID Allergies Coded Allergies: No Known Allergies (Unverified , 01/11/18) Vital Signs Date Time Temp Pulse Resp B/P (MAP) Pulse Ox O2 Delivery O2 Flow Rate FiO2 01/11/18 12:22 110 01/11/18 12:08 36.8 91 Room Air 01/11/18 11:53 117 18 137/68 94 Room Air 01/11/18 10:17 130 20 118/59 92 Nasal Cannula 3.0 01/11/18 09:53 38.6 01/11/18 09:08 127 22 140/77 94 Nasal Cannula 3.0 01/11/18 08:44 95 Nasal Cannula 3.0 01/11/18 08:36 128 01/11/18 08:10 90 Room Air 01/11/18 08:06 37.4 126 20 127/67 90 Room Air Laboratory Results 01/11/18 08:37 Red Blood Count 5.07, Mean Corpuscular Volume 85.8, Mean Corpuscular Hemoglobin 31.2, Mean Corpuscular Hemoglobin Concent 36.3, Mean Platelet Volume 8.8, Neutrophils (%) (Auto) 64.2, Lymphocytes (%) (Auto) 7.6, Monocytes (%) (Auto) 10.0, Eosinophils (%) (Auto) 15.7, Basophils (%) (Auto) 0.7, Neutrophils # (Auto ) 5.49, Lymphocytes # (Auto) 0.65, Monocytes # (Auto) 0.85, Eosinophils # (Auto ) 1.34, Basophils # (Auto) 0.06 01/11/18 08:37 Test 01/11/18 08:30 01/11/18 08:37 01/11/18 08:42 Influenza Type A Antigen POS for Influ A (NEG) Influenza Type B Antigen Neg for Influ B (NEG) White Blood Count 8.54 K/uL (4.8-10.8) Red Blood Count 5.07 M/uL (4.7-6.1) Hemoglobin 15.8 g/dL (14.0-18.0) Hematocrit 43.5 % (42-52) Mean Corpuscular Volume 85.8 fL (80-100) Mean Corpuscular Hemoglobin 31.2 pg (25-34) Mean Corpuscular Hemoglobin Concent 36.3 g/dl (32-36) Platelet Count 291 K/uL (130-400) Mean Platelet Volume 8.8 fL (7.4-10.4) Neutrophils (%) (Auto) 64.2 % Lymphocytes (%) (Auto) 7.6 % Monocytes (%) (Auto) 10.0 % Eosinophils (%) (Auto) 15.7 % Basophils (%) (Auto) 0.7 % Neutrophils # (Auto) 5.49 K/uL (1.4-6.5) Lymphocytes # (Auto) 0.65 K/uL (1.2-3.4) Monocytes # (Auto) 0.85 K/uL (0.11-0.59) Eosinophils # (Auto) 1.34 K/uL (0-0.5) Basophils # (Auto) 0.06 K/uL (0-0.2) RDW Standard Deviation 41.6 fL (36.4-46.3) RDW Coefficient of Variation 13.3 % (11.5-14.5) Immature Granulocyte % (Auto) 1.8 % Immature Granulocyte # (Auto) 0.15 K/uL (0.00-0.02) Prothrombin Time 11.4 SECONDS (9.0-12.0) Prothromb Time International Ratio 1.1 (0.9-1.1) Activated Partial Thromboplast Time 28.5 SECONDS (21.0-31.0) Partial Thromboplastin Ratio 1.1 Anion Gap 9.0 mmol/L (3-11) Est Creatinine Clear Calc Drug Dose 103.3 ml/min Estimated GFR () 104.9 Estimated GFR (Non- 90.5 BUN/Creatinine Ratio 6.4 (10-20) Calcium Level 9.0 mg/dl (8.5-10.1) Bedside D-Dimer 262 ng/mlFEU (0-450) Bedside Troponin I < 0.030 ng/ml (0-0.045) Medications Administered Medications (Trade) Dose Ordered Sig/Rasheeda Route Start Time Stop Time Status Last Admin Dose Admin Albuterol/ Ipratropium (Duoneb) 3 ml NOW STAT INH 01/11/18 08:22 01/11/18 08:25 DC 01/11/18 08:34 3 ML Dexamethasone Sodium Phosphate (Decadron Inj) 10 mg NOW STAT IV 01/11/18 08:22 01/11/18 08:25 DC 01/11/18 08:43 10 MG Ondansetron HCl (Zofran Inj) 4 mg NOW STAT IV 01/11/18 08:48 01/11/18 08:49 DC 01/11/18 09:06 4 MG Sodium Chloride 1,000 ml @ 999 mls/hr Q1H1M STAT IV 01/11/18 09:14 01/11/18 10:14 DC 01/11/18 09:33 999 MLS/HR Albuterol/ Ipratropium (Duoneb) 3 ml NOW STAT INH 01/11/18 09:14 01/11/18 09:15 DC 01/11/18 09:32 3 ML Acetaminophen (Tylenol Tab) 1,000 mg NOW STAT PO 01/11/18 10:04 01/11/18 10:05 DC 01/11/18 10:19 1,000 MG Ketorolac Tromethamine (Toradol Inj) 30 mg NOW STAT IV 01/11/18 10:04 01/11/18 10:05 DC 01/11/18 10:19 30 MG Oseltamivir Phosphate (Tamiflu Cap) 75 mg NOW STAT PO 01/11/18 11:36 01/11/18 11:37 DC 01/11/18 11:48 75 MG Albuterol (Ventolin Hfa Inhaler) 2 puffs NOW ONCE INH 01/11/18 11:45 01/11/18 11:46 DC 01/11/18 11:49 2 PUFFS Departure Information Impression Primary Impression: Influenza A Prescriptions Albuterol Hfa (VENTOLIN HFA) 200 Puffs/32499 Mcg Aers 2-4 PUFFS INH Q4, #1 INHALER Prov: Costlow, Joan C.,PA 01/11/18 Oseltamivir (Tamiflu) 75 Mg Cap 75 MG PO BID for 5 Days, #10 CAP Prov: Joan Hood PA 01/11/18 Referrals No Doctor, Assigned (PCP) Patient Instructions My [facility] Additional Instructions Tamiflu 75 m tablet twice daily for 5 days. Acetaminophen(Tylenol) may be used for fever or pain. Use 1000mg every six hours as needed. Avoid using more than 3000mg in a 24 hour period. (AND/OR) Ibuprofen(Motrin, Advil) may be used for fever or pain. Use 600mg every six hours as needed. Take with food. Avoid using more than 2400mg in a 24 hour period. Do not use 2400mg per day for more than three consecutive days without physician direction. Prolonged inappropriate use can lead to stomach upset or ulcers. Pseudoephedrine(Sudaphed): 30-60mg every 6 hours as needed for nasal congestion. Do not take this with other stimulant products or supplements. Guaifenesin (Mucinex) : Take 1200 mg every 12 hours as needed for nasal/chest congestion, to help thin secretions. Albuterol Inhaler: Take 2 puffs every 3-4 hours for the next 5-7 days, then as needed for cough, wheezing or shortness of breath. Rest and drink plenty of fluids. Controlling your fever with Tylenol and Ibuprofen as above will make you feel better. Wash your hands after nose blowing, sneezing, or coughing. Most germs are spread through contact, therefore improper hygiene may result in your close contacts and loved ones becoming ill just like you. Continue current medications. Return to the ER for severe headache, neck stiffness, chest pain, difficulty breathing, uncontrolled or persistent fevers, vomiting, worsening of your condition, or as needed. Follow up with your primary physician this week for a recheck of your current condition.
[2018-01-11 12:22] VITALS: PULSE 110
== END 2018-01-11 12:40 | disposition home or self-care (01) ==
LOC: C.EDB 08:05
DX: J10.89 Influenza due to other identified influenza virus with other manifestations (principal); J45.909 Unspecified asthma, uncomplicated; Z87.09 Personal history of other diseases of the respiratory system